=== PATIENT | male | born 1985 ===

== ENCOUNTER → 2022-04-01 08:01 | Outpatient (BNVA) | payer OTHER, SELFPAY | PROVIDERS: PCP Hospitalist; Referring Provider Hospitalist; Visit Provider Physician Assistant | DX: Z13.89 Encounter for screening for other disorder (principal) ==

== ENCOUNTER → 2022-04-02 10:47 | Outpatient (BNVA) | payer OTHER, SELFPAY | PROVIDERS: PCP Hospitalist; Visit Provider Physician Assistant Surgical | DX: E66.01 Morbid (severe) obesity due to excess calories (principal); Z68.42 Body mass index [BMI] 45.0-49.9, adult | CPT/HCPCS: 99202 ==

== ENCOUNTER 2022-04-16 09:49 | Outpatient (REF) | payer OTHER, SELFPAY ==
--- NOTE | ~2022-04-16 | XR_ITS ---
EXAMINATION: XR CHEST CLINICAL INFORMATION: Morbid obesity. COMPARISON: None TECHNIQUE: 2 views of the chest were obtained. FINDINGS: No significant abnormality is noted involving the heart, lungs, mediastinum, bony thorax or soft tissues. XR/XR chest 2V IMPRESSION: Unremarkable examination.
--- NOTE | 2022-04-16 09:56 | ECG_ITS ---
Test Reason : OBESITY Blood Pressure : / mmHG Vent. Rate : 074 BPM Atrial Rate : 074 BPM P-R Int : 198 ms QRS Dur : 114 ms QT Int : 380 ms P-R-T Axes : 005 025 -05 degrees QTc Int : 421 ms Normal sinus rhythm Normal ECG No previous ECGs available Referred By: Og Andrews Electronically Signed By:Martin Pabon
[2022-04-16 10:12] LABS: MANUAL DIFF FLAG NO
[2022-04-16 10:50] LABS: Basophils Absolute Auto 0.1 X10*3/uL (0.0-0.2); Basophils Percent Auto 0.9 % (0-2); Eosinophils Absolute Auto 0.1 X10*3/uL (0.0-0.4); Eosinophils Percent Auto 2.6 % (0-4); Hemoglobin 13.7 g/dl (14.0-18.0); Imm Gran Abs Auto 0.01 X10*3/uL (0.00-0.03); Imm Gran Pct Auto 0.2 % (0.0-0.4); Lymphocytes Absolute Auto 2.3 X10*3/uL (1.2-4.9); Lymphocytes Percent Auto 43.3 % (20-40); Mean Corpuscular HGB Conc 32.6 g/dl (31.0-36.0); Mean Corpuscular Hemoglobin 30.6 pg (27.0-33.0); Mean Platelet Volume 9.7 fL (9.4-12.4); Monocytes Absolute Auto 0.4 X10*3/uL (0.1-1.2); Monocytes Percent Auto 7.9 % (2-11); Neutrophils Absolute Auto 2.4 x10*3/uL (2.0-8.3); Neutrophils Percent Auto 45.1 % (45-73); Platelet Count 384 X10*3/uL (160-400); Red Blood Count 4.47 X10*6/uL (4.60-5.80); Red Cell Distribution Width 11.5 % (11.0-16.0); White Blood Count 5.3 X10*3/uL (4.8-10.8)
[2022-04-16 10:56] LABS: Estimated Average Glucose 88 mg/dL; Hemoglobin A1c % 4.7 %
[2022-04-16 11:25] LABS: Alanine Aminotransferase 23 U/L (0-40); Albumin Level 4.5 g/dL (3.5-5.0); Alkaline Phosphatase 57 U/L (39-117); Anion Gap 14 (12-20); Aspartate Amino Transferase 24 U/L (5-37); Bilirubin Total 0.7 mg/dL (0.0-1.0); Blood Urea Nitrogen 19 mg/dL (9-16); C Reactive Protein 0.73 mg/dL (< or = 0.50); Calcium 9.7 mg/dL (8.4-10.2); Carbon Dioxide 25 mmol/L (22-29); Chloride 106 mmol/L (96-108); Cholesterol 145 mg/dL; Estimated Glomerular Filt Rate > 60; Glucose Random 104 mg/dL (60-115); HDL Cholesterol 38 mg/dL; Iron 99 mcg/dL (45-160); LDL Cholesterol Calculated 95 mg/dl; Percent Iron Saturation 29 % (15-50); Potassium 4.9 mmol/L (3.3-5.1); Sodium 140 mmol/L (135-145); Total Iron Binding Capacity 338 mcg/dL (228-428); Total Protein 7.4 g/dL (6.5-8.0); Triglycerides 64 mg/dL; Unsaturated Iron Binding 239 ug/dL
[2022-04-16 12:00] LABS: Ferritin 319 ng/mL (20-250); Folate 15.2 ng/mL (> or = 4.0); Insulin 20 uU/mL (2-29); TSH reflex Free T4 0.81 uIU/mL (0.32-4.0); Vitamin B12 530 pg/mL (200-900); Vitamin D 25-OH Total 26.3 ng/mL (>30)
[2022-04-17 14:59] LABS: Calcium (PTHI) 9.7 mg/dL (8.6-10.3); PTHI 54 pg/mL (16-77)
[2022-04-22 00:13] LABS: Zinc 85 mcg/dL (60-130)
[2022-04-23 03:13] LABS: Vitamin A 38 mcg/dL (38-98)
[2022-04-24 14:33] LABS: Vitamin B1 <6 nmol/L (8-30)
== END 2022-04-16 09:50 | disposition home or self-care (01) ==
LOC: HO.LAB 09:49
PROVIDERS: PCP Hospitalist; Visit Provider Physician Assistant Surgical
DX: E66.01 Morbid (severe) obesity due to excess calories (principal)
CPT/HCPCS: 36415; 71046; 80053; 80061; 82306; 82607; 82728; 82746; 83036; 83525; 83540; 83970; 84425; 84443; 84590; 84630; 85025; 86140; 93005

== ENCOUNTER → 2022-04-24 09:37 | Outpatient (BNVA) | payer OTHER, SELFPAY | PROVIDERS: PCP Hospitalist; Referring Provider Physician Assistant Surgical; Visit Provider Dietitian, Registered | DX: E66.01 Morbid (severe) obesity due to excess calories (principal); Z68.41 Body mass index [BMI] 40.0-44.9, adult | CPT/HCPCS: 97802 ==

== ENCOUNTER → 2022-04-28 09:00 | Outpatient (BNVA) | payer OTHER, SELFPAY | PROVIDERS: PCP Hospitalist; Visit Provider Physician Assistant Surgical | DX: E66.01 Morbid (severe) obesity due to excess calories (principal); Z68.41 Body mass index [BMI] 40.0-44.9, adult | CPT/HCPCS: 99211; 99212 ==

== ENCOUNTER 2022-04-28 15:58 | Outpatient (REF) | payer OTHER, SELFPAY ==
[2022-04-29 15:32] LABS: H Pylori Breath Test Positive (Negative)
== END 2022-04-28 15:59 | disposition home or self-care (01) ==
LOC: HO.LNP 15:58
PROVIDERS: Visit Provider Physician Assistant Surgical
DX: E66.01 Morbid (severe) obesity due to excess calories (principal)
CPT/HCPCS: 83013

== ENCOUNTER → 2022-05-19 10:02 | Outpatient (BNVA) | payer OTHER, SELFPAY | PROVIDERS: PCP Hospitalist; Visit Provider Surgery | DX: E66.01 Morbid (severe) obesity due to excess calories (principal); R06.83 Snoring; R79.89 Other specified abnormal findings of blood chemistry; A04.8 Other specified bacterial intestinal infections; Z68.41 Body mass index [BMI] 40.0-44.9, adult | CPT/HCPCS: 99212 ==

== ENCOUNTER 2022-05-27 08:44 | Outpatient (REF) | payer OTHER, SELFPAY ==
--- NOTE | ~2022-05-27 | US_ITS ---
EXAMINATION: US COMPLETE ABDOMEN WITH LIVER ELASTOGRAPHY CLINICAL INFORMATION: Morbid obesity. COMPARISON: None available. TECHNIQUE: Real-time imaging of the abdominal viscera. Noninvasive ultrasound liver fibrosis assessment is performed using Ron ElastPQ point quantification shear wave elastography (2D-SWE) with a C5-2 MHz transducer. Multiple elastography samples are obtained. FINDINGS: PANCREAS: Limited. The visualized pancreatic head and body are normal in appearance. The remainder of the pancreas is obscured from visualization by the overlying bowel gas. ABDOMINAL AORTA: The proximal, middle, and distal aortic segments are normal in caliber. INFERIOR VENA CAVA: Visualized portions are normal. LIVER: The liver demonstrates normal size, contour and generally increased echogenicity. No focal lesion or intrahepatic biliary duct dilatation. The right lobe measures 18 point cm in length. The left lobe measures 13.3 cm in length. Portal flow is towards the liver (hepatopetal). Shear wave liver elastography median stiffness is 1.35 m/s (reference: normal median stiffness is 1.3 m/s or less). IQR/median stiffness to assess sampling precision is 0.22 (reference: good quality data set is IQR/median stiffness of 0.15 or less). GALLBLADDER: Normal. The gallbladder is physiologically distended without evidence of stones, sludge, polyps, wall thickening or pericholecystic fluid. COMMON BILE DUCT: Normal in caliber measuring 0.4 cm in diameter. RIGHT KIDNEY: Normal. No hydronephrosis. No renal calculi or focal parenchymal lesions. The kidney measures 12.5 cm in maximum dimension. LEFT KIDNEY: Normal. No hydronephrosis. No renal calculi or focal parenchymal lesions. The kidney measures 11.8 cm in maximum dimension. SPLEEN: Normal. The spleen measures 10.9 cm in maximum dimension. FREE FLUID: None. US/US abdomen comp w elastography IMPRESSION: 1. There is generalized increase in hepatic echotexture, consistent with fatty infiltration or hepatocellular disease. Please correlate clinically. No focal hepatic mass or intrahepatic biliary dilatation is seen. 2. Liver elastography: Although measurements appear to rule out compensated advanced chronic liver disease, there is statistical variability of the sampling which decreases accuracy. 3. Technically limited ultrasound examination of the pancreatic tail. REFERENCE: Society of Radiologists in Ultrasound Liver Stiffness Thresholds (2020): LIVER STIFFNESS THRESHOLDS: *Liver Stiffness equal or less than 1.3 m/s: High probability of being normal. *Liver Stiffness less than 1.7 m/s: In the absence of other known clinical signs, rules out compensated advanced chronic liver disease. *Liver Stiffness 1.7-2.1 m/s: Suggestive of compensated advanced chronic liver disease but need further test for confirmation. *Liver Stiffness over 2.1 m/s: Rules in compensated advanced chronic liver disease. *Liver Stiffness over 2.4 m/s: Suggestive of clinically significant portal hypertension. QUALITY OF DATA SET: *IQR/Median value equal or less than 0.15 implies a quality data set. *IQR/Median value over 0.15 implies a poor quality data set. SIGNIFICANT CHANGE FROM PRIOR EXAM: Significant change if liver stiffness measurement is 10% or greater from prior exam. OTHER CONSIDERATIONS: The stage of liver fibrosis may be overestimated in the setting of acute hepatitis, liver inflammation, elevated liver function tests, hepatic vascular congestion, obstructive cholestasis, non-fasting state, and infiltrative diseases such as amyloidosis and lymphoma. In some patients with NAFLD, the liver stiffness thresholds for compensated advanced chronic liver disease may be lower. In causes other than viral hepatitis and NAFLD, liver stiffness thresholds are not well established.
== END 2022-05-27 08:45 | disposition home or self-care (01) ==
LOC: HO.US 08:44
PROVIDERS: PCP Hospitalist; Visit Provider Physician Assistant Surgical
DX: Z01.818 Encounter for other preprocedural examination (principal); E66.01 Morbid (severe) obesity due to excess calories; K21.9 Gastro-esophageal reflux disease without esophagitis
CPT/HCPCS: 76705; 76981

== ENCOUNTER → 2022-06-02 09:50 | Outpatient (BNVA) | payer OTHER, SELFPAY | PROVIDERS: PCP Hospitalist; Visit Provider Physician Assistant Surgical | DX: Z11.0 Encounter for screening for intestinal infectious diseases (principal); E66.01 Morbid (severe) obesity due to excess calories; Z68.41 Body mass index [BMI] 40.0-44.9, adult | CPT/HCPCS: 99211; 99212 ==

== ENCOUNTER 2022-06-04 15:44 | Outpatient (REF) | payer OTHER, SELFPAY ==
[2022-06-05 11:58] LABS: H Pylori Breath Test Positive (Negative)
== END 2022-06-04 15:45 | disposition home or self-care (01) ==
LOC: HO.LNP 15:44
PROVIDERS: Visit Provider Physician Assistant Surgical
DX: Z01.818 Encounter for other preprocedural examination (principal)
CPT/HCPCS: 83013

== ENCOUNTER → 2022-06-06 09:47 | Outpatient (BNVA) | payer OTHER, SELFPAY | PROVIDERS: PCP Hospitalist; Visit Provider Counselor Mental Health ==

== ENCOUNTER 2022-07-23 09:01 | Outpatient (REF) | payer OTHER, SELFPAY ==
--- NOTE | ~2022-07-23 | FL_ITS ---
EXAMINATION: XR FLUOROSCOPY UPPER GI WITH AIR CLINICAL INFORMATION: Obesity COMPARISON: None available. TECHNIQUE: Upper GI was performed using thin and thick barium and effervescent granules FINDINGS: Esophageal motility is normal. No hernia. Gastroesophageal reflux. The stomach and duodenum are normal-appearing. No fold thickening, mass, ulcer or stricture. FLUOROSCOPY TIME: 0.5 minutes DOSE AREA PRODUCT: 6.7 maldonado per centimeter squared. Total dose 38 mgy. 16 saved fluoroscopic images. FL/FL upper GI w air IMPRESSION: Gastroesophageal reflux otherwise unremarkable exam
== END 2022-07-23 09:02 | disposition home or self-care (01) ==
LOC: HO.XRAY 09:01
PROVIDERS: PCP Hospitalist; Visit Provider Physician Assistant Surgical
DX: E66.01 Morbid (severe) obesity due to excess calories (principal)
CPT/HCPCS: 74246

== ENCOUNTER → 2022-07-25 09:12 | Outpatient (BNVA) | payer OTHER, SELFPAY | PROVIDERS: PCP Hospitalist; Referring Provider Hospitalist; Visit Provider Surgery ==

== ENCOUNTER → 2022-07-29 12:04 | Outpatient (BNVA) | payer SELFPAY | PROVIDERS: PCP Hospitalist; Visit Provider Physician Assistant Surgical | DX: E66.01 Morbid (severe) obesity due to excess calories (principal); Z68.41 Body mass index [BMI] 40.0-44.9, adult | CPT/HCPCS: 99212 ==

== ENCOUNTER 2023-09-14 09:57 | Outpatient (AMB) | payer OTHER, SELFPAY ==
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
[2023-09-14 10:12] VITALS: BP 134/70; PULSE 83; RESP 16; TEMP 36.4; O2SAT 94; BMI 44.0
== END 2023-09-14 10:37 | disposition home or self-care (01) ==
PROVIDERS: Visit Provider Nurse Practitioner Family
DX: Z00.00 Encounter for general adult medical examination without abnormal findings (principal); E66.01 Morbid (severe) obesity due to excess calories; Z68.41 Body mass index [BMI] 40.0-44.9, adult; M79.602 Pain in left arm; R79.89 Other specified abnormal findings of blood chemistry; Z72.89 Other problems related to lifestyle
CPT/HCPCS: 99214; 99395

== ENCOUNTER 2024-04-06 09:15 | Outpatient (REF) | payer OTHER, SELFPAY ==
[2024-04-06 09:35] LABS: MANUAL DIFF FLAG NO
--- OUTSIDE RECORDS SUMMARY | 2024-04-06 09:37 | XMS_ITS | Encounter Summary ---
Author Organization [facility] Address [address] [place] [address] Care Team Providers Care Manager Test Name Role Phone Unavailable Primary Care Provider Unavailabl e Reason for Referral * Medications - Denied Specialty Diagnoses / Procedures Referred By Elias kohli Referred To Contact Diagnoses Class 3 severe obesity due to excess calories without serious comorbidity with body mass index (BMI) of 40.0 to 44.9 in adult (CMS/[facility]) Shi Vasquez MD [address] [address] Referral ID Status Reason Start Date Expiration Date Visits Re quested Visits Authorized [id number] Denied 1 1 Reason for Visit * Reason Comments Consult New patient Encounter Details Date Type Department Care Team (Late st Contact Info) Description 03/29/2024 3:30 PM EST Office Visit Bariatric Surgery - [place] [address] [phone] Shi Vasuqez MD [address] [address] Class 3 severe obesity due to excess calories without serious comorbidity with body mass index (BMI) of 40.0 to 44.9 in adult (CMS/[facility]) (Primary Dx) Social History Tobacco Use Types Packs/Day Years Used Date Smoking Tobacco: Never Assessed Sex and Gender Information Value Date Recorded Sex Assigned at Male 03/30/2024 4:43 PM EST Gender Identity Male 03/30/2024 4:43 PM EST Sexual Orientation Straight 03/30/2024 4: 43 PM EST Job Start Date Occupation Industry Not on file Not on file Not on file documented as of this encounter Last Filed Vital Signs Vital Sign Reading Time Taken Comments Blood Pressure 133/76 03/29/2024 3:27 PM EST Pulse 88 03/29/2024 3:27 PM EST Temperature 36.6 ??C (97.8 ??F) 03/29/2024 3:27 PM ES T Respiratory Rate - - Oxygen Saturation - - Inhaled Oxygen Concentration - - Weight 154 kg (339 lb) 03/29/2024 3:27 PM EST Height 188 cm (6' 2 ) 03/29/2024 3:27 PM EST Body Mass Index 43.53 03/29/2024 3:27 PM EST documented in this encounter Ordered Prescriptions Prescription Sig Dispensed Refills Start Date End Da te tirzepatide, weight loss, (Zepbound) 2.5 mg/0.5 mL injectionIndications:Class 3 severe obesity due to excess calories without serious comorbidity with body mass index (BMI) of 40.0 to 44.9 in adult (CMS/[facility]) Inject 0.5 mL (2.5 mg total) under the skin every 7 (seven) days for 4 doses. 2 mL 03/29/2024 04/20/2024 documented in this encounter Progress Notes * Shi Vasquez MD - 03/29/2024 3:30 PM EST Referring physician: PCP Ms. Pepper is a 38 y.o. year old male who presents for surgical consultation regarding obesity. HPI: Mr. Pepper [address] came to [facility]. Was ready to have bariatric surgery and decided not to have. BMI is 43.53. Onset: as above. Factors: less active than. in [place] Previous attempts: has lost 25 lbs avoiding junk, not eating at night. Lost down to 307 lbs when he was in the bariatric program. Has been able to lose three times, mostly exercising. Eating habits: large portion, fast food, and take out when he gained the weight. Exercise: has tried to go gym. Comorbidities: none yet. BMI: 45.53. ROS: GENERAL: No malaise, significant unintentional weight loss, fever, chills or night sweats. HEENT: No changes in hearing or vision, no nose bleeds or other nasal problems. NECK: No lumps, goiter, pain or significant neck swelling RESPIRATORY: No cough, wheezing or shortness of breath CARDIOVASCULAR: No chest pain, leg swelling or palpitations. GI: No abdominal discomfort, nausea, vomiting, or change in bowel habits. : No dysuria, frequency or incontinence. SKIN: No lesions, rash or itching. HEMATOLOGY: No prolonged bleeding, easy bruisability. LYMPHOLOGY No swollen nodes. MUSCULOSKELETAL: No abnormalities. NEURO: No abnormalities. All other systems reviewed which are negative. PAST MEDICAL HISTORY: There is no problem list on file for this patient. PAST SURGICAL HISTORY: No past surgical history on file. SOCIAL HISTORY: Social History Tobacco Use Smoking status: Not on file Smokeless tobacco: Not on file Substance Use Topics Alcohol use: Not on file FAMILY HISTORY: No family history on file. No family status information on file. MEDICATIONS: There are no discontinued medications. ACTIVE MEDICATIONS: No outpatient medications have been marked as taking for the 03/29/24 encounter (Office Visit) with Shi Vasquez MD. ALLERGIES: No Known Allergies PHYSICAL EXAM: Visit Vitals BP 133/76 Pulse 88 Temp 36.6 ??C (97.8 ??F) (Oral) Ht 1.88 m (74 ) Wt 154 kg (339 lb) BMI 43.53 kg/m?? BSA 2.72 m?? APPEARANCE: Alert and oriented and in no acute distress EYES: Conjunctiva normal and sclera normal and anicteric. NECK: Neck supple with no adenopathy. HEART: RRR with normal S 1 and S 2, no murmurs, no gallops. LUNG: Clear to auscultation LYMPH NODES: No gross cervical or clavicular lymphadenopathy. ABDOMEN: Bowel sounds normoactive, soft, non-tender, non-distended, EXTREMITIES: Extremities warm and well perfused without clubbing, cyanosis, or edema. SKIN: Skin color and texture normal. No rashes or lesions. NEUROLOGIC: Alert and oriented ??3. No motor or sensory deficits in the extremities. LABS/IMAGING: @AORD@ ASSESSMENT: 1. Class 3 severe obesity due to excess calories without serious comorbidity with body mass index (BMI) of 40.0 to 44.9 in adult (CMS/[facility]) Hemoglobin A1c Lipid panel with reflex to direct LDL Hepatic function panel Thyroid stimulating hormone PLAN: 1. I discussed with the patient the different procedures available including the sleeve gastrectomy, the gastric bypass and the single anastomosis duodenal ileal bypass with sleeve. Indications, benefits, risks and complications were discussed. I also discussed with the patient the different medical options. I explained the mechanism of action, the potential adverse effects and the expected results. These included phentermine, topiramate, naltrexone, bupropion and the different GLP-1 medications. He is afraid of surgery. 2. The patient is a good candidate for medical weight management given a BMI of 43.53 . Risk of developing co-morbidities. They remain dedicated to improving their health and quality of life as well as remaining physicallyactive. I have had a long discussion with the patient regarding medical weight management which includes both oral medications including stimulants/appetite suppressants versus injectable GLP-1 medications. We have decided to proceed with injectable GIP/GLP-1 medication - tirzepatide The risks and benefits of this medication were discussed in length with the patient. Benefits include weight loss and overall healthier lifestyle with he hopes of improving any co morbid conditions. Risks include nausea/vomiting, diarrhea, injection site reaction, gastroparesis. We have also discussed the potential for thyroid cancer and multiple endocrine neoplasia; patient denies family history of either condition. We discussed that this medication should be used long-term and that obesity will be treated as a chronic condition. If and when patient stops this medication weight may come back. The patient will follow-up in the office every 4 weeks for a weight check and potential dose titration The patient will also continue to follow-up with the dietitian to ensure that they are working on proper eating habits in addition to using the medication. 3. Dietitian. 4. The patient will let us know in few weeks if the medication is being effective or if the patientis having side effects. The dose will be adjusted depending upon the response and the presence of side effects. Follow-up in 4 months. documented in this encounter Plan of Treatment Upcoming Encounters Date Type Department Care Team ([facility] st Contact Info) Description 07/28/2024 10:15 AM EDT Office Visit Bariatric Surgery - [place] [address] [phone] Shi Vasquez MD [address] [address] documented as of this encounter Results * Thyroid stimulating hormone (03/30/2024 10:42 AM EST) TSH 1.91 0.40 - 4.00 mcIU/mL LAB CHEMISTRY METHOD 03/30/2024 3:33 PM EST [facility] Blood Venous blood specimen / Unknown Venipuncture / Unknown 03/30/2024 10:42 AM EST 03/30/2024 10:42 AM EST Shi Vasquez MD LAB BLOOD ORDERABLES [facility] [address] [place] [address], * Hepatic function panel (03/30/2024 10:42 AM EST) Pathologist [facility] Total Protein 7.7 6.0 - 8.0 g/dL LAB CHEMISTRY METHOD 03/30/2024 3:[address] [facility] Albumin 4.0 3.2 - 5.0 g/dL LAB CHEMISTRY METHOD 03/30/2024 3:[address] [facility] Total Bilirubin 0.5 0.0 - 1.4 mg/dL LAB CHEMISTRY METHOD 03/30/2024 3:[address] [facility] Bilirubin, Direct <0.1 0.0 - 0.3 mg/dL LAB CHEMISTRY METHOD 03/30/2024 3:[address] [facility] Bilirubin, Indirect LAB CHEMISTRY METHOD 03/30/2024 3:[address] [facility] Comment:Unable to calculate Indirect Bilirubin. ALT (SGPT) 30 10 - 60 unit/L LAB CHEMISTRY METHOD 03/30/2024 3:28 PM EST [facility] AST (SGOT) 18 10 - 42 unit/L LAB CHEMISTRY METHOD 03/30/2024 3:[address] [facility] Alkaline Phosphatase 59 42 - 121 unit/L LAB CHEMISTRY METHOD 03/30/2024 3:[address] [facility] Blood Venous blood specimen / Unknown Venipuncture / Unknown 03/30/2024 10:42 AM EST 03/30/2024 10:42 AM EST Shi Vasquez MD LAB BLOOD ORDERABLES [facility] [address] [place] [address], * Lipid panel with reflex to direct LDL (03/30/2024 10:42 AM EST) Cholesterol 167 0 - 200 mg/dL LAB CHEMISTRY METHOD 03/30/2024 3:[address] [facility] Triglycerides 114 0 - 150 mg/dL LAB CHEMISTRY METHOD 03/30/2024 3:[address] [facility] HDL 46 >=40 mg/dL LAB CHEMISTRY METHOD 03/30/2024 3:[address] [facility] LDL Calculated 98 0 - 100 mg/dL LAB CHEMISTRY METHOD 03/30/2024 3:[address] [facility] VLDL Cholesterol Prabhakar 22.8 mg/dL LAB CHEMISTRY METHOD 03/30/2024 3:[address] [facility] Non HDL Chol. (LDL+VLDL) 121 <145 mg/dL LAB CHEMISTRY METHOD 03/30/2024 3:[address] [facility] Chol/HDL Ratio 3.6 0.0 - 4.4 LAB CHEMISTRY METHOD 03/30/2024 3:[address] [facility] Blood Venous blood specimen / Unknown Venipuncture / Unknown 03/30/2024 10:42 AM EST 03/30/2024 10:42 AM EST Shi Vasquez MD LAB BLOOD ORDERABLES [facility] [address] [place] [address], [place] [phone] * Hemoglobin A1c (03/30/2024 10:42 AM EST) Hemoglobin A1C 4.9 <6.5 % LAB CHEMISTRY METHOD 03/30/2024 8:27 PM EST [facility] Mean Bld Glu Estim. 94 mg/dL LAB CHEMISTRY METHOD 03/30/2024 8:27 PM EST [facility] Blood Venous blood specimen / Unknown Venipuncture / Unknown 03/30/2024 10:42 AM EST 03/30/2024 10:42 AM EST Shi Vasquez MD LAB BLOOD ORDERABLES [facility] [address] [place] [address], [place] [phone] documented in this encounter Visit Diagnoses Diagnosis Class 3 severe obesity due to excess calories without serious comorbidity with body mass index (BMI) of 40.0 to 44.9 in adult (CMS/HCC)- Primary documented in this encounter
--- OUTSIDE RECORDS SUMMARY | 2024-04-06 09:38 | XMS_ITS | Clinical Summary ---
Author Organization [facility] Address [address] [place] [address] Care Team Providers Care Skilled Helper Name Role Phone Unavailable Primary Care Provider Unavailabl e Allergies No known active allergies Medications Medication Sig Dispensed Refills Start Date End Date Status tirzepatide, weight loss, (Zepbound) 2.5 mg/0.5 mL injectionIndications:C lass 3 severe obesity due to excess calories without serious comorbidity with body mass index (BMI) of 40.0 to 44.9 in adult (CMS/HCC) Inject 0.5 mL (2.5 mg total) under the skin every 7 (seven) days for 4 doses. 2 mL 03/29/2024 04/20/2024 Active Encounters Date Type Department Care Team Description 04/05/2024 11:30 AM EST Telemedicine Bariatric Surgery [address] [phone] Class 3 severe obesity without serious comorbidity with body mass index (BMI) of 45.0 to 49.9 in adult, unspecified obesity type (CMS/HCC) (Primary Dx) 03/30/2024 Telephone Bariatric Surgery [address] [phone] Shi Vasquez MD 03/29/2024 3:30 PM EST Office Visit Bariatric Surgery [address] [phone] Shi Vasquez MD Class 3 severe obesity due to excess calories without serious comorbidity with body mass index (BMI) of 40.0 to 44.9 in adult (CMS/HCC) (Primary Dx) from Last 3 Months Social History Tobacco Use Types Packs/Day Years Used Date Smoking Tobacco: Never Assessed Sex and Gender Information Value Date Recorded Sex Assigned at Male 03/30/2024 4:43 PM EST Gender Identity Male 03/30/2024 4:43 PM EST Sexual Orientation Straight 03/30/2024 4: 43 PM EST Job Start Date Occupation Industry Not on file Not on file Not on file Last Filed Vital Signs Vital Sign Reading Time Taken Comments Blood Pressure 133/76 03/29/2024 3:27 PM EST Pulse 88 03/29/2024 3:27 PM EST Temperature 36.6 ??C (97.8 ??F) 03/29/2024 3:27 PM ES T Respiratory Rate - - Oxygen Saturation - - Inhaled Oxygen Concentration - - Weight 154 kg (339 lb) 04/05/2024 11:00 AM EST Height 188 cm (6' 2 ) 03/29/2024 3:27 PM EST Body Mass Index 43.53 03/29/2024 3:27 PM EST Plan of Treatment Upcoming Encounters Date Type Department Care Team (Late st Contact Info) Description 07/28/2024 10:15 AM EDT Office Visit Bariatric Surgery - [place] 175 [facility] [address] [place] [phone] Shi Vasquez MD 175 [facility] [address] [place] [address] Health Maintenance Due Date Last Done Comments DTaP,Tdap,and Td Vaccines (1 - Tdap) 2005 Hepatitis B Vaccines (1 of 3 - 19+ 3-dose series) 2005 COVID-19 Vaccine (2023-2 5 season) 2023 07/04/2020, 06/13/2020 Influenza Vaccine (#1) 2023 Depression Screening 01/24/2024 HIV Screening 01/24/2024 Hepatitis C Screening 01/24/2024 Social Influencers of Health Screening 01/24/2024 Cholesterol Screening (Lipid Panel) 03/30/2029 03/30/2024 HIB Vaccines Aged Out No longer eligi ble based on patient's age to complete this topic HPV Vaccines Aged Out No longer eligi ble based on patient's age to complete this topic Hepatitis A Vaccines Aged Out No long er eligible based on patient's age to complete this topic IPV Vaccines Aged Out No longer eligi ble based on patient's age to complete this topic MMR Vaccines Aged Out No longer eligi ble based on patient's age to complete this topic Meningococcal ACWY Vaccine Aged Out N o longer eligible based on patient's age to complete this topic Pneumococcal Vaccine: Pediatrics (0 to 5 Years) and At-Risk Patients (6 to 64 Years) Aged Out No longer eligible b ased on patient's age to complete this topic RSV Immunization Patients Under 20 months Aged Out No longer eligible b ased on patient's age to complete this topic Varicella Vaccines Aged Out No longer eligible based on patient's age to complete this topic Procedures Procedure Name Priority Date/Time Associated Diagnosis Comments THYROID STIMULATING HORMONE Routine 03/30/2024 10:42 AM EST Class 3 severe obesity due to excess calories without serious comorbidity with body mass index (BMI) of 40.0 to 44.9 in adult ([facility]) HEPATIC FUNCTION PANEL Routine 03/30/2024 10:42 AM EST Class 3 severe obesity due to excess calories without serious comorbidity with body mass index (BMI) of 40.0 to 44.9 in adult ([facility]) LIPID PANEL WITH REFLEX TO DIRECT LDL Routine 03/30/2024 10:42 AM EST Class 3 severe obesity due to excess calories without serious comorbidity with body mass index (BMI) of 40.0 to 44.9 in adult ([facility]) HEMOGLOBIN A1C Routine 03/30/2024 10:42 AM EST Class 3 severe obesity due to excess calories without serious comorbidity with body mass index (BMI) of 40.0 to 44.9 in adult ([facility]) from Last 3 Months Results * Lipid panel with reflex to direct LDL (03/30/2024 10:42 AM EST) Cholesterol 167 0 - 200 mg/dL LAB CHEMISTRY METHOD 03/30/2024 3:28 PM [facility] Triglycerides 114 0 - 150 mg/dL LAB CHEMISTRY METHOD 03/30/2024 3:28 PM [facility] HDL 46 >=40 mg/dL LAB CHEMISTRY METHOD 03/30/2024 3:28 PM [facility] LDL Calculated 98 0 - 100 mg/dL LAB CHEMISTRY METHOD 03/30/2024 3:28 PM [facility] VLDL Cholesterol Prabhakar 22.8 mg/dL LAB CHEMISTRY METHOD 03/30/2024 3:28 PM [facility] Non HDL Chol. (LDL+VLDL) 121 <145 mg/dL LAB CHEMISTRY METHOD 03/30/2024 3:28 PM [facility] Chol/HDL Ratio 3.6 0.0 - 4.4 LAB CHEMISTRY METHOD 03/30/2024 3:28 PM [facility] Blood Venous blood specimen / Unknown Venipuncture / Unknown 03/30/2024 10:42 AM EST 03/30/2024 10:42 AM EST Shi Vasquez MD LAB BLOOD ORDERABLES [facility] [address] [place] [address], * Thyroid stimulating hormone (03/30/2024 10:42 AM EST) TSH 1.91 0.40 - 4.00 mcIU/mL LAB CHEMISTRY METHOD 03/30/2024 3:33 PM [facility] Blood Venous blood specimen / Unknown Venipuncture / Unknown 03/30/2024 10:42 AM EST 03/30/2024 10:42 AM EST Shi Vasquez MD LAB BLOOD ORDERABLES [facility] [address] [place] [address], * Hemoglobin A1c (03/30/2024 10:42 AM EST) [facility] Hemoglobin A1C 4.9 <6.5 % LAB CHEMISTRY METHOD 03/30/2024 8:27 PM [facility] Mean Bld Glu Estim. 94 mg/dL LAB CHEMISTRY METHOD 03/30/2024 8:27 PM [facility] Blood Venous blood specimen / Unknown Venipuncture / Unknown 03/30/2024 10:42 AM EST 03/30/2024 10:42 AM EST Shi Vasquez MD LAB BLOOD ORDERABLES [facility] [address] [place] [address], * Hepatic function panel (03/30/2024 10:42 AM EST) [facility] Total Protein 7.7 6.0 - 8.0 g/dL LAB CHEMISTRY METHOD 03/30/2024 3:28 PM [facility] Albumin 4.0 3.2 - 5.0 g/dL LAB CHEMISTRY METHOD 03/30/2024 3:28 PM [facility] Total Bilirubin 0.5 0.0 - 1.4 mg/dL LAB CHEMISTRY METHOD 03/30/2024 3:28 PM [facility] Bilirubin, Direct <0.1 0.0 - 0.3 mg/dL LAB CHEMISTRY METHOD 03/30/2024 3:28 PM [facility] Bilirubin, Indirect LAB CHEMISTRY METHOD 03/30/2024 3:28 PM [facility] Comment:Unable to calculate Indirect Bilirubin. ALT (SGPT) 30 10 - 60 unit/L LAB CHEMISTRY METHOD 03/30/2024 3:28 PM [facility] AST (SGOT) 18 10 - 42 unit/L LAB CHEMISTRY METHOD 03/30/2024 3:[address] [facility] Alkaline Phosphatase 59 42 - 121 unit/L LAB CHEMISTRY METHOD 03/30/2024 3:[address] [facility] Blood Venous blood specimen / Unknown Venipuncture / Unknown 03/30/2024 10:42 AM EST 03/30/2024 10:42 AM EST Shi Vasquez MD LAB BLOOD ORDERABLES [facility] [address] [place] [address], from Last 3 Months
--- OUTSIDE RECORDS SUMMARY | 2024-04-06 09:38 | XMS_ITS | Encounter Summary ---
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 Name Role Phone Unavailable Primary Care Provider Unavailabl e Encounter Details Date Type Department Care Team (Late st Contact Info) Description 03/30/2024 Telephone Bariatric Surgery - [place] [address] [place] [phone] Shi Vasquez MD [address] [place] [address] Social History Tobacco Use Types Packs/Day Years Used Date Smoking Tobacco: Never Assessed Sex and Gender Information Value Date Recorded Sex Assigned at Male 03/30/2024 4:43 PM EST Gender Identity Male 03/30/2024 4:43 PM EST Sexual Orientation Straight 03/30/2024 4: 43 PM EST Job Start Date Occupation Industry Not on file Not on file Not on file documented as of this encounter Progress Notes * Michelle Andrade MA - 03/30/2024 8:40 AM EST We heard back in regards to the prior authorization we submitted on your behalf for Carmen. Your insurance will not approve an injectable medications until you have been in our program for at least three months. You started the program in 03/29/24, therefore we can resubmit to your insurance in 06/27/24. You have an appointment with your dietitian Nirali Kearney RD on 04/05/24 at 2pm. You have a follow up with Shi Vasquez MD, FACS on 07/28/24 at 10:15 am. After your appointment with Shi Vasquez MD, FACS - we can resubmit for Zepbound for you. documented in this encounter Plan of Treatment Upcoming Encounters Date Type Department Care Team (Late st Contact Info) Description 07/28/2024 10:15 AM EDT Office Visit Bariatric Surgery - [place] [address] [facility] [address] [place] [phone] Shi Vasquez MD [address] [facility] [address] [facility] [address] [place] [address] documented as of this encounter Visit Diagnoses Not on filedocumented in this encounter
--- OUTSIDE RECORDS SUMMARY | 2024-04-06 09:38 | XMS_ITS | Encounter Summary ---
Author Organization [facility] Address [address] [place] [address] Care Team Providers Care Manager Programs Name Role Phone Unavailable Primary Care Provider Unavailabl e Encounter Details Date Type Department Care Team (Late st Contact Info) Description 04/05/2024 11:30 AM EST Telemedicine Bariatric Surgery - [address] [phone] Nirali Kearney, EDU [address] [phone] Class 3 severe obesity without serious comorbidity with body mass index (BMI) of 45.0 to 49.9 in adult, unspecified obesity type (CMS/HCC) (Primary Dx) Social History Tobacco Use Types [...] Sign Reading Time Taken Comments Blood Pressure - - Pulse - - Temperature - - Respiratory Rate - - Oxygen Saturation - - Inhaled Oxygen Concentration - - Weight 154 kg (339 lb) 04/05/2024 11:00 AM EST Height - - Body Mass Index 43.53 03/29/2024 3:27 PM EST documented in this encounter Progress Notes * Nirali Kearney RD - 04/05/2024 11:30 AM EST Images from the original note were not included. Patient-created Goals: 64 oz of water daily - preferably sipping throughout the day (no carbonation or sugar) 100- 120 grams of protein per day from lean protein sources such as chicken, turkey, fish, beans, etc. A minimum of 3 meals per day. Preferably 3 small meals and 2 snacks spaced out over the course of the day (every 3-5 hours) Each meal and snack should include protein Protein shakes can replace a meal or snack, look for 20-30 grams of protein, less than 5 grams of added sugar (orgain, premiere) .Nirali Kearney RDN Bariatric Dietitian [facility] [email or web address] W [phone] F [phone] [place] [address] [address] * Nirali Kearney RD - 04/05/2024 11:30 AM EST The patient received guidance on receiving healthcare through telehealth, including the use of HIPAA privacy -compliant technology for remote communication and its associated privacy risks. The patient was also informed of the limitations of treatment provided through telehealth and that in the event of a lost or failed video connection, the provider may call back or reschedule the visit. Alternatively, the patient may opt for an in-person visit. The patient gave consent for the use of video communication and provided care and confirmed that they were in a quiet and private location to discuss their health freely. The patient understands the visit will be submitted to their insurance and that they are responsible for any copay or deductible charges. Additionally, if the patient is LimitedEnglish Proficient, deaf, or hard of hearing, speech impaired, or has another disability which impairs their ability to communicate, the services of a qualified drawing kiln operator will be provided during the visit. Patients Location: home Total Time: 60 minutes INITIAL NUTRITION CONSULT Patient Name: Dwight Pepper Date of : 1985 Date of Service: 04/05/2024 SURGEON: Shi Vasquez MD DESIRED SURGERY: Medication Management waiting insurance CHIEF COMPLAINT: Obesity HISTORY: Dwight Pepper is a 38 y.o. Male who presents for initial nutrition visit for Weight loss management Reports reasons for wanting to lose weight: Overall Health, children What made you decide to have weight loss surgery? No surgery Do you know anyone who has had weight loss surgery? Did not discuss Previous Weight Loss Methods: went through bariatric program lost (53 lb) History of Dietitian/Practical Nursing Instructor Visits previously: Yes Ht Readings from Last 1 Encounters: 03/29/24 1.88 m (74 ) Wt today: Wt Readings from Last 4 Encounters: 04/05/24 154 kg (339 lb) 03/29/24 154 kg (339 lb) Body mass index is 43.53 kg/m??. Wt at initial: 339 Wt change since initial: 0 EBW = current - wt at BMI of 25: 339 - 180 = 159 Goal wt: 230 Highest/lowest wt: 360/220 Onset of obesity: more recent Family history of obesity: no Possible triggers to weight gain: Life events that lead to weight gain: got into accident after losing 53 lb through program, regained much of it back Factors making weight loss difficult: eats fast, but not fast food Weight change in the past year: maintained EATING HABITS/DIET RECALL: Breakfast: eggs (3-4), with crackers (6-7) saltines (soda), boiled banana Lunch: skip Dinner: 4 pm-5 pm rice, chicken, steak, sometimes with salad Snacks: apples and strawberries Beverages: water 2 bottles (protein shakes with almond milk) Dines out: Yes History of disordered eating: Did not discuss Skips meals: Yes lunch Pace of eating: Fast GI issues: Gastritis Food allergies / intolerances: None Exercise: Gym walk 15 minutes Reasons patient cannot / should not exercise: none SOCIAL HISTORY: 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 ACTIVE PROBLEM LIST: There is no problem list on file for this patient. PAST SURGICAL HISTORY: No past surgical history on file. PAST FAMILY HISTORY: No family history on file. ACTIVE MEDICATIONS: Current Outpatient Medications on File Prior to Visit Medication Sig Dispense Refill tirzepatide, weight loss, (Zepbound) 2.5 mg/0.5 mL injection Inject 0.5 mL (2.5 mg total) under theskin every 7 (seven) days for 4 doses. 2 mL 0 No current facility-administered medications on file prior to visit. ALLERGIES: No Known Allergies Nutrition diagnosis: Class III obesity related to {Inadequate Physical Activity as evidenced by A BMI 45.5 Patient-created Goals: 64 oz of water daily - preferably sipping throughout the day (no carbonation or sugar) 100- 120 grams of protein per day from lean protein sources such as chicken, turkey, fish, beans, etc. A minimum of 3 meals per day. Preferably 3 small meals and 2 snacks spaced out over the course of the day (every 3-5 hours) Each meal and snack should include protein Protein shakes can replace a meal or snack, look for 20-30 grams of protein, less than 5 grams of added sugar (orgradha meadows) Literature Provided: Build a healthy plate, Healthy snack handout, Protein content , Goal sheets, and RD contact information Interventions: Discuss the importance of eating at least 3 meals/day and the impact on metabolism, Discussed the importance of including protein with each meal and snack, Discussed the plate method and balanced meal, Discussed carbohydrate foods and impact on blood sugar levels, and Discussed theimportance of drinking enough water Nutrition assessment: Pt is 38 y.o. Male with h/o has no past medical history on file. Stage of change/Barriers to understanding: Pt is motivated to make changes to diet and lifestyle and No barriers to understanding Concerns regarding considerations for bariatric surgery: No surgery plan for pt a this time Monitoring/Evaluation: Monitor weight and Monitor progress toward nutrition goals RD to see patient for follow-up in 3 months Visit Time: The total time of this visit was 60 minutes of which we spent 60 minutes (>50% of the time spent) in direct [id number] consultation for counseling, reviewing medical record and/or coordinating the plan as described above. Nirali Kearney RD NUTRITION SERVICES documented in this encounter Plan of Treatment Upcoming Encounters Date Type Department Care Team (Late st Contact Info) Description 07/28/2024 10:15 AM EDT Office Visit Bariatric Surgery - [address] [phone] Shi Vasquez MD [address] [place] [address] [address] [place] [address] documented as of this encounter Visit Diagnoses Diagnosis Class 3 severe obesity without serious comorbidity with body mass index (BMI) of 45.0 to 49.9 in adult, unspecified obesity type (CMS/HCC)- Primary documented in this encounter
[2024-04-06 10:23] LABS: Basophils Percent Auto 0.5 % (0-2); Eosinophils Absolute Auto 0.2 X10*3/uL (0.0-0.4); Eosinophils Percent Auto 3.9 % (0-4); Hematocrit 38.9 % (42.0-52.0); Hemoglobin 13.2 g/dl (14.0-18.0); Imm Gran Abs Auto 0.02 X10*3/uL (0.00-0.03); Imm Gran Pct Auto 0.4 % (0.0-0.4); Lymphocytes Absolute Auto 2.1 X10*3/uL (1.2-4.9); Lymphocytes Percent Auto 37.2 % (20-40); Mean Corpuscular HGB Conc 33.9 g/dl (31.0-36.0); Mean Corpuscular Hemoglobin 31.7 pg (27.0-33.0); Mean Corpuscular Volume 93.3 fL (80.0-98.0); Mean Platelet Volume 10.1 fL (9.4-12.4); Monocytes Absolute Auto 0.5 X10*3/uL (0.1-1.2); Monocytes Percent Auto 9.5 % (2-11); Neutrophils Absolute Auto 2.8 x10*3/uL (2.0-8.3); Neutrophils Percent Auto 48.5 % (45-73); Platelet Count 319 X10*3/uL (160-400); Red Blood Count 4.17 X10*6/uL (4.60-5.80); Red Cell Distribution Width 11.7 % (11.0-16.0); White Blood Count 5.7 X10*3/uL (4.8-10.8)
[2024-04-06 10:57] LABS: Alanine Aminotransferase 24 U/L (0-40); Albumin Level 4.3 g/dL (3.5-5.0); Alkaline Phosphatase 55 U/L (39-117); Anion Gap 10 (12-20); Aspartate Amino Transferase 26 U/L (5-37); Bilirubin Total 0.6 mg/dL (0.0-1.0); Blood Urea Nitrogen 20 mg/dL (9-16); Carbon Dioxide 26 mmol/L (22-29); Chloride 105 mmol/L (96-108); Cholesterol 173 mg/dL (<200); Estimated Glomerular Filt Rate > 60; Glucose Fasting 98 mg/dL (60-99); HDL Cholesterol 42 mg/dL (>40); LDL Cholesterol Calculated 110 mg/dL (<100); Sodium 137 mmol/L (135-145); Total Protein 7.9 g/dL (6.5-8.0); Triglycerides 107 mg/dL (<150)
[2024-04-06 11:19] LABS: TSH reflex Free T4 1.64 uIU/mL (0.32-4.0); Vitamin D 25-OH Total 24.9 ng/mL (>30)
== END 2024-04-06 09:16 | disposition home or self-care (01) ==
LOC: HO.LAB 09:15
PROVIDERS: PCP Nurse Practitioner Family; Visit Provider Nurse Practitioner Family
DX: Z00.00 Encounter for general adult medical examination without abnormal findings (principal); R79.89 Other specified abnormal findings of blood chemistry
CPT/HCPCS: 36415; 80053; 80061; 82306; 84443; 85025

== ENCOUNTER 2024-04-11 13:20 | Outpatient (AMB) | payer OTHER, SELFPAY ==
--- NOTE | 2024-04-11 13:15 | A.OFFPC_ITS ---
Intake Visit Reasons: blood work Intake Note: patient here telehealth for lab review Transfer Car Operator Required: No Allergies No Known Allergies Allergy (Verified 04/11/24 13:45) Medication List - Last Reconciled 04/11/24 by Cary Swann CNP No Known Home Meds Tobacco use date assessed: 04/11/24 Dental Screening Dental Screen Date: 04/11/24 Did you have a dental visit in the last 12 months?: Yes Did you have a dental problem in the last 6 months where you did not have access to dental care?: No Was dental information given to patient?: Patient has dentist HPI HPI Comments History of Present Illness Details 38-year-old male, presents for a telehealth visit for review of recent lab results. He is mostly Danish speaking. He is accompanied by his . His last office visit was when he established care 09/14/2023. He reports pain intermittent pain to the penile frenulum during sexual intercourse. He denies infection to the area. He is uncircumcised. He requests consultation with a specialist. [facility] Medical History Recent foreign travel Surgical History No pertinent past surgical history Family History Mother Heart problem Daughter No problems noted. Daughter No problems noted. Son No problems noted. Son No problems noted. 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 Tereso Babin, Ginna Wren, Tyshawn Chu and colleagues, with an educational allan from [employer]. Review of Systems Const Details: Denies chills, Denies fatigue, Denies fever(s), Denies headache(s) and Denies weakness Cardiac Denies chest pain, Denies claudication, Denies leg edema, Denies lightheadedness, Denies palpitations, Denies dyspnea, Denies dyspnea on exertion, Denies orthopnea and Denies other (Loss of consciousness) Resp Denies cough, Denies excessive phlegm production, Denies dyspnea, Denies dyspnea on exertion, Denies snoring and Denies wheezing Reports as per HPI Physical exam (Primary Care) Tobacco/Smoking Status: Tobacco use Status Tobacco use date assessed 04/11/24 04/11/24 13:18 Patient Tobacco Use Status Never used Tobacco 04/11/24 13:18 Tobacco use type 09/14/23 10:37 e-Cigarette/Vaping Use Former Use 04/11/24 13:18 Thrive Assessment: Date of Thrive Assessment Date Thrive assessed 09/14/23 04/11/24 13:18 Const Other: Telehealth visit. No physical exam. Telehealth Telehealth Telehealth Platform: Telephone Location of provider rendering services: practice address Location of patient: address on file Patient Identification confirmed using: Name, : Yes Telehealth method: voice only Patient verbally consented to treatment: Yes Patient verbally consented to billing insurance company: Yes Patient informed of any privacy concerns related to visit: Yes Coding Level of Care Code Tele Est Pt Level 4 (52711) Diagnoses Vitamin D deficiency E55.9 Mild chronic anemia D64.9 Elevated LDL cholesterol level E78.00 Uncircumcised male Z78.9 Dyspareunia in male N53.12 Time Spent (min) 25 Assessment & Plan Assessment & Plan (1) Vitamin D deficiency: Code(s): E55.9 - Vitamin D deficiency, unspecified Category: Medical Plan: Recent vitamin-D level is low, 24.9 Will order vitamin D3 1000 units daily; advised to take as prescribed. Will recheck vitamin-D level. Advised to get blood work done 2-3 days before next visit Follow-up in 8 weeks or sooner with symptoms or concerns Verbalized understanding and agreed with treatment plan. (2) Mild chronic anemia: Code(s): D64.9 - Anemia, unspecified Category: Medical Plan: Recent RBC, and H&H levels are slightly low, 4.17 and 13.2/38.9 respectively. Iron studies in 2022 were unremarkable. Follow-up with symptoms or concerns. Verbalized understanding and agreed with treatment plan. (3) Elevated LDL cholesterol level: Code(s): E78.00 - Pure hypercholesterolemia, unspecified Category: Medical Plan: Recent LDL level is slightly elevated, 110. Advised to limit foods high in saturated fat and avoid foods high in trans fat. Routine exercise encouraged. Will monitor lipid panel levels periodically. Verbalized understanding and agreed with the plan. (4) Uncircumcised male: Code(s): Z78.9 - Other specified health status Category: Medical Plan: Intermittent pain to the penile frenulum during sexual intercourse. No infection to the area. Referred to [facility] urology. Follow-up with worsening or new symptoms. Verbalized understanding and agreed with treatment plan. (5) Dyspareunia in male: Code(s): N53.12 - Painful ejaculation Category: Medical Plan: Plan as above. Orders: Orders Vitamin D 25-OH Total 2 Months E55.9 - Vitamin D deficiency, unspecified Referrals Urology Referral N53.12 - Painful ejaculation, Z78.9 - Other specified health status Medications: New 2 cholecalciferol (vitamin D3) 25 mcg PO DAILY 30 days 30 tabs 3RF
--- OUTSIDE RECORDS SUMMARY | 2024-04-11 14:23 | XMS_ITS | Encounter Summary ---
Author Organization [facility] Address [address] [place] [address] Care Team Providers Care Production Troubleshooter Name Role Phone Unavailable Primary Care Provider Unavailabl e Reason for Referral * Medications - Denied Specialty Diagnoses / Procedures Referred By Elias kohli Referred To Contact Diagnoses Class 3 severe obesity due to excess calories without serious comorbidity with body mass index (BMI) of 40.0 to 44.9 in adult (CMS/[facility]) Shi Vasquez MD [address] [address] Phone: tel: fax: Referral ID Status Reason Start Date Expiration Date Visits Re quested Visits Authorized [id number] Denied 1 1 Reason for Visit * Reason Comments Consult New patient Encounter Details Date Type Department Care Team (Late st Contact Info) Description 03/29/2024 3:30 PM EST Office Visit Bariatric Surgery - [place] [address] [phone] Shi Vasquez MD [address] [address] Class 3 severe obesity due to excess calories without serious comorbidity with body mass index (BMI) of 40.0 to 44.9 in adult (CMS/[facility]) (Primary Dx) Social History Tobacco Use Types Packs/Day Years Used Date Smoking Tobacco: Never Assessed Sex and Gender Information Value Date Recorded Sex Assigned at Male 03/30/2024 4:43 PM EST Legal Sex Male 3:11 PM EST Gender Identity Male 03/30/2024 4:43 PM EST Sexual Orientation Straight 03/30/2024 4: 43 PM EST documented as of this encounter Last Filed [...] in this encounter Ordered Prescriptions Prescription Sig Dispense Quantity Refills Last Filled Start Date End Date tirzepatide, weight loss, (Zepbound) 2.5 mg/0.5 mL injectionIndicatio ns:Class 3 severe obesity due to excess calories without serious comorbidity with body mass index (BMI) of 40.0 to 44.9 in adult (CMS/[facility]) Inject 0.5 mL (2.5 mg total) under the skin every 7 (seven) days for 4 doses. 2 mL 03/29/2024 04/20/2024 documented in this encounter Progress Notes * Shi Vasquez MD - 03/29/2024 3:30 PM EST Referring physician: PCP Ms. Pepper is a 38 y.o. year old male who presents for surgical consultation regarding obesity. HPI: Mr. Pepper 2009 when he came to [facility]. Was ready to have bariatric surgery and [...] (BMI) of 40.0 to 44.9 in adult ([facility]) Hemoglobin A1c Lipid panel with reflex to [...] AM EDT Office Visit Bariatric Surgery - [place] [address] [facility] [address] [place] [phone] Shi Vasquez MD 175 [facility] [address] [place] [address] documented as of this encounter Results * Thyroid stimulating hormone (03/30/2024 10:42 AM EST) Pathologist [facility] TSH 1.91 0.40 - 4.00 mcIU/mL LAB CHEMISTRY METHOD 03/30/2024 3:33 PM EST [facility] Blood Venous blood specimen / Unknown Venipuncture / Unknown 03/30/2024 10:42 AM EST 03/30/2024 10:42 AM EST us Shi Vasquez MD LAB BLOOD ORDERABLES Final R esult [facility] [address] [place] [address], * Hepatic function panel (03/30/2024 10:42 AM EST) [facility] Total Protein 7.7 6.0 - 8.0 g/dL LAB CHEMISTRY METHOD 03/30/2024 3:28 PM EST [facility] Albumin 4.0 3.2 - 5.0 g/dL LAB CHEMISTRY METHOD 03/30/2024 3:28 PM [facility] Total Bilirubin 0.5 0.0 - 1.4 mg/dL LAB CHEMISTRY METHOD 03/30/2024 3:28 PM [facility] Bilirubin, Direct <0.1 0.0 - 0.3 mg/dL LAB CHEMISTRY METHOD 03/30/2024 3:28 PM [facility] Bilirubin, Indirect LAB CHEMISTRY METHOD 03/30/2024 3:28 PM [facility] Comment:Unable to calculate Indirect Bilirubin. ALT (SGPT) 30 10 - 60 unit/L LAB CHEMISTRY METHOD 03/30/2024 3:28 PM [facility] AST (SGOT) 18 10 - 42 unit/L LAB CHEMISTRY METHOD 03/30/2024 3:28 PM [facility] Alkaline Phosphatase 59 42 - 121 unit/L LAB CHEMISTRY METHOD 03/30/2024 3:28 PM [facility] Blood Venous blood specimen / Unknown Venipuncture / Unknown 03/30/2024 10:42 AM EST 03/30/2024 10:42 AM EST us Shi Vasquez MD LAB BLOOD ORDERABLES Final R esult [facility] [address] [place] [address], [place] [phone] * Lipid panel with reflex to direct LDL (03/30/2024 10:42 AM EST) Cholesterol 167 0 - 200 mg/dL LAB CHEMISTRY METHOD 03/30/2024 3:28 PM [facility] Triglycerides 114 0 - 150 mg/dL LAB CHEMISTRY METHOD 03/30/2024 3:28 PM [facility] HDL 46 >=40 mg/dL LAB CHEMISTRY METHOD 03/30/2024 3:28 PM [facility] LDL Calculated 98 0 - 100 mg/dL LAB CHEMISTRY METHOD 03/30/2024 3:28 PM [facility] VLDL Cholesterol Prabhakar 22.8 mg/dL LAB CHEMISTRY METHOD 03/30/2024 3:28 PM [facility] Non HDL Chol. (LDL+VLDL) 121 <145 mg/dL LAB CHEMISTRY METHOD 03/30/2024 3:28 PM [facility] Chol/HDL Ratio 3.6 0.0 - 4.4 LAB CHEMISTRY METHOD 03/30/2024 3:28 PM [facility] Blood Venous blood specimen / Unknown Venipuncture / Unknown 03/30/2024 10:42 AM EST 03/30/2024 10:42 AM EST us Shi Vasquez MD LAB BLOOD ORDERABLES Final R esult Performing Organization Address City/[facility]/ZIP Co de Phone Number [facility] [address] [place] [address], [place] [phone] * Hemoglobin A1c (03/30/2024 10:42 AM EST) Hemoglobin A1C 4.9 <6.5 % LAB CHEMISTRY METHOD 03/30/2024 8:27 PM EST [facility] Mean Bld Glu Estim. 94 mg/dL LAB CHEMISTRY METHOD 03/30/2024 8:27 PM EST [facility] Blood Venous blood specimen / Unknown Venipuncture / Unknown 03/30/2024 10:42 AM EST 03/30/2024 10:42 AM EST us Shi Vasquez MD LAB BLOOD ORDERABLES Final R esult Performing Organization Address City/[facility]/ZIP Co de Phone Number [facility] [address] [place] [address], [place] [phone] documented in this encounter Visit Diagnoses Diagnosis Class 3 severe obesity due to excess calories without serious comorbidity with body mass index (BMI) of 40.0 to 44.9 in adult (CMS/HCC)- Primary documented in this encounter
--- OUTSIDE RECORDS SUMMARY | 2024-04-11 14:23 | XMS_ITS | Encounter Summary ---
Author Organization [facility] Address [address] [place] [address] Care Team Providers Care Fur Scraper Name Role Phone Unavailable Primary Care Provider Unavailabl e Encounter Details Date Type Department Care Team (Late st Contact Info) Description 04/05/2024 11:30 AM EST Telemedicine Bariatric Surgery - [address] [phone] Nirali Kearney, EDU [address] [phone] Class 3 severe obesity without serious comorbidity [...] (orgain, premiere) .Nirali Kearney RDN Bariatric Dietitian [facility] [email or web address] W [phone] F [phone] [place] [address] [address] * Nirali Kearney RD - [...] to communicate, the services of a qualified artisan plasterer will be provided during the visit. Patients [...] bariatric program lost (53 lb) History of Dietitian/Bellows Assembler Visits previously: Yes Ht Readings from Last [...] (>50% of the time spent) in direct [id number] consultation for counseling, reviewing medical record and/or coordinating the plan as described above. Nirali Kearney RD NUTRITION SERVICES documented in this encounter Plan of Treatment Upcoming Encounters Date Type Department Care Team (Late st Contact Info) Description 07/28/2024 10:15 AM EDT Office Visit Bariatric Surgery - [address] [phone] Shi Vasquez MD [address] [place] [address] [address] [place] [address] documented as of this encounter Visit Diagnoses Diagnosis Class 3 severe obesity without serious comorbidity with body mass index (BMI) of 45.0 to 49.9 in adult, unspecified obesity type (CMS/HCC)- Primary documented in this encounter
--- OUTSIDE RECORDS SUMMARY | 2024-04-11 14:24 | XMS_ITS | Clinical Summary ---
Author Organization [facility] [place] Address [address] [place] [address] Care Team Providers Care Right Of Way Manager Name Role Phone Unavailable Primary Care Provider Unavailabl e Allergies No known active allergies Medications tirzepatide, weight loss, (Zepbound) 2.5 mg/0.5 mL injectionIndicat ions:Class 3 severe obesity due to excess calories without serious comorbidity with body mass index (BMI) of 40.0 to 44.9 in adult (CMS/HCC) Inject 0.5 mL (2.5 mg total) under the skin every 7 (seven) days for 4 doses. 2 mL 03/29/2024 5 Active Encounters Date Type Department Care Team Description 04/05/2024 11:30 AM EST Telemedicine Bariatric Surgery [address] [phone] Class 3 severe obesity without serious comorbidity with body mass index (BMI) of 45.0 to 49.9 in adult, unspecified obesity type (CMS/HCC) (Primary Dx) 03/30/2024 Telephone Bariatric Surgery [address] [phone] Shi Vasquez MD 03/29/2024 3:30 PM EST Office Visit Bariatric Surgery [address] [phone] Shi Vasquez MD Class 3 severe obesity [...] Orientation Straight 03/30/2024 4: 43 PM EST Last Filed Vital Signs Vital Sign Reading [...] AM EDT Office Visit Bariatric Surgery - [place] [address] [facility] [address] [place] [phone] Shi Vasquez MD [address] [facility] [address] [place] [address] Health Maintenance Due Date Last Done Comments DTaP,Tdap,and Td Vaccines (1 - Tdap) 1993 Hepatitis B Vaccines (1 of 3 - [...] patient's age to complete this topic Meningococcal B Vacine Aged Out No lo nger eligible based on patient's age to complete [...] (BMI) of 40.0 to 44.9 in adult ([facility]) HEPATIC FUNCTION PANEL Routine 03/30/2024 10:42 AM EST Class 3 severe obesity due to excess calories without serious comorbidity with body mass index (BMI) of 40.0 to 44.9 in adult ([facility]) LIPID PANEL WITH REFLEX TO DIRECT LDL Routine 03/30/2024 10:42 AM EST Class 3 severe obesity due to excess calories without serious comorbidity with body mass index (BMI) of 40.0 to 44.9 in adult ([facility]) HEMOGLOBIN A1C Routine 03/30/2024 10:42 AM EST Class 3 severe obesity due to excess calories without serious comorbidity with body mass index (BMI) of 40.0 to 44.9 in adult ([facility]) from Last 3 Months Results * Lipid panel with reflex to direct LDL (03/30/2024 10:42 AM EST) Cholesterol 167 0 - 200 mg/dL LAB CHEMISTRY METHOD 03/30/2024 3:[address] [facility] Triglycerides 114 0 - 150 mg/dL LAB CHEMISTRY METHOD 03/30/2024 3:28 PM [facility] HDL 46 >=40 mg/dL LAB CHEMISTRY METHOD 03/30/2024 3:28 PM [facility] LDL Calculated 98 0 - 100 mg/dL LAB CHEMISTRY METHOD 03/30/2024 3:[address] [facility] VLDL Cholesterol Prabhakar 22.8 mg/dL LAB CHEMISTRY METHOD 03/30/2024 3:[address] [facility] Non HDL Chol. (LDL+VLDL) 121 <145 mg/dL LAB CHEMISTRY METHOD 03/30/2024 3:28 PM [facility] Chol/HDL Ratio 3.6 0.0 - 4.4 LAB CHEMISTRY METHOD 03/30/2024 3:[address] [facility] Blood Venous blood specimen / Unknown Venipuncture / Unknown 03/30/2024 10:42 AM EST 03/30/2024 10:42 AM EST us Shi Vasquez MD LAB BLOOD ORDERABLES Final R esult [facility] [address] [place] [address], * Thyroid stimulating hormone (03/30/2024 10:42 AM EST) [facility] TSH 1.91 0.40 - 4.00 mcIU/mL LAB CHEMISTRY METHOD 03/30/2024 3:[address] [facility] Blood Venous blood specimen / Unknown Venipuncture / Unknown 03/30/2024 10:42 AM EST 03/30/2024 10:42 AM EST us Shi Vasquez MD LAB BLOOD ORDERABLES Final R esult Performing Organization Address City/[facility]/ZIP Co de Phone Number [facility] [address] [place] [address], [place] [phone] * Hemoglobin A1c (03/30/2024 10:42 AM EST) [facility] Hemoglobin A1C 4.9 <6.5 % LAB CHEMISTRY METHOD 03/30/2024 8:[address] [facility] Mean Bld Glu Estim. 94 mg/dL LAB CHEMISTRY METHOD 03/30/2024 8:[address] [facility] Blood Venous blood specimen / Unknown Venipuncture / Unknown 03/30/2024 10:42 AM EST 03/30/2024 10:42 AM EST Shi Vasquez MD LAB BLOOD ORDERABLES Final R esult Performing Organization Address [facility]/ZIP Co de Phone Number [facility] [address] [place] [address], [place] [phone] * Hepatic function panel (03/30/2024 10:42 AM EST) [facility] Total Protein 7.7 6.0 - 8.0 g/dL LAB CHEMISTRY METHOD 03/30/2024 3:28 PM [facility] Albumin 4.0 3.2 - 5.0 g/dL LAB CHEMISTRY METHOD 03/30/2024 3:28 PM [facility] Total Bilirubin 0.5 0.0 - 1.4 mg/dL LAB CHEMISTRY METHOD 03/30/2024 3:28 PM [facility] Bilirubin, Direct <0.1 0.0 - 0.3 mg/dL LAB CHEMISTRY METHOD 03/30/2024 3:28 PM [facility] Bilirubin, Indirect LAB CHEMISTRY METHOD 03/30/2024 3:28 PM [facility] Comment:Unable to calculate Indirect Bilirubin. ALT (SGPT) 30 10 - 60 unit/L LAB CHEMISTRY METHOD 03/30/2024 3:[address] [facility] AST (SGOT) 18 10 - 42 unit/L LAB CHEMISTRY METHOD 03/30/2024 3:[address] [facility] Alkaline Phosphatase 59 42 - 121 unit/L LAB CHEMISTRY METHOD 03/30/2024 3:[address] [facility] Blood Venous blood specimen / Unknown Venipuncture / Unknown 03/30/2024 10:42 AM EST 03/30/2024 10:42 AM EST us Shi Vasquez MD LAB BLOOD ORDERABLES Final R esult [facility] [address] [place] [address], [place] [phone] from Last 3 Months Insurance [facility] [place] [address]
--- OUTSIDE RECORDS SUMMARY | 2024-04-11 14:24 | XMS_ITS | Encounter Summary ---
Author Organization [facility] Address [address] [place] [address] Care Team Providers Care Editor Trade Journal Name Role Phone Unavailable Primary Care Provider Unavailabl e Encounter Details Date Type Department Care Team (Late st Contact Info) Description 03/30/2024 Telephone Bariatric Surgery - [place] [address] [facility] [address] [place] [phone] Shi Vasquez MD [address] [place] [address] Social History Tobacco Use Types Packs/Day Years Used Date Smoking Tobacco: Never Assessed Sex and Gender Information Value Date Recorded Sex Assigned at Male 03/30/2024 4:43 PM EST Legal Sex Male 3:11 PM EST Gender Identity Male 03/30/2024 4:43 PM EST Sexual Orientation Straight 03/30/2024 4: 43 PM EST documented as of this encounter Progress Notes * Michelle Andrade MA - 03/30/2024 8:40 AM EST We heard back in regards to the prior authorization we submitted on your behalf for Joshuavlelsie. Your insurance will not approve an injectable [...] AM EDT Office Visit Bariatric Surgery - [place] [address] [facility] [address] [place] [phone] Shi Vasquez MD [address] [facility] [address] [facility] [address] [place] [address] documented as of this encounter Visit Diagnoses Not on filedocumented in this encounter
== END 2024-04-11 16:03 | disposition home or self-care (01) ==
LOC: HO.HMCFM 13:20
PROVIDERS: PCP Nurse Practitioner Family; Visit Provider Nurse Practitioner Family
DX: D64.9 Anemia, unspecified (principal); E55.9 Vitamin D deficiency, unspecified; E78.00 Pure hypercholesterolemia, unspecified; Z78.9 Other specified health status; N53.12 Painful ejaculation

== ENCOUNTER 2024-06-08 13:16 | Outpatient (AMB) | payer OTHER, SELFPAY ==
--- NOTE | 2024-06-08 13:21 | A.OFFVIS_ITS ---
Intake Visit Reasons: painful ejaculation/penile pain Intake Note: New patient presents today for initial visit for painful ejaculation/penile pain Urology Medication:none Blood Thinner:none Antibiotic Allergies:none Bus And [employer] Integration Senior Manager Services: Bus And Sys Integration Senior Manager Present Bus And [employer] Integration Senior Manager Name: Sundeep [id number] Allergies No Known Allergies Allergy (Verified 06/08/24 13:42) Medication List - Last Reconciled 06/08/24 by LINDSEY Maynard- cholecalciferol (vitamin D3) 25 mcg PO DAILY 30 days HPI Comments Details: Dwight is a very pleasant 38-year-old Comoran-speaking male patient of Dr. Swann. He presents to the office today as a new patient for consultation for potential frenulectomy. In discussion with the patient today he reports a longstanding history of penile pain upon erections due to frenulum tightness. He reports this has been an issue for ongoing years however feels it has become more bothersome. In assessment of the patient today the penis is uncircumcised and frenulum does appear shortened otherwise no open areas, lesions, and or drainage noted throughout the area. He denies urinary urgency, urinary frequency, incontinence, nocturia, hematuria, dysuria, foul smelling urine, changes to urinary stream, flank pain, fever, and or chills. He is happy with his current voiding parameters. We discussed further treatment options and risks and benefits of these treatment options. Discussed plan of care with Dr. Roman will schedule for in office frenulectomy. Plan The patient will undergo a frenulectomy to address tight phrenulum. Benefits include resolution of erection pain. The patient prefers local anesthesia. Risks discussed include infection and bleeding. Antibiotic prophylaxis will be given. The procedure will proceed once insurance authorization is confirmed. Patient was informed and verbally consented to the use of an ambient scribe for clinic note documentation during this visit. Discussion Notes I discussed with the patient the tight phrenulum and associated pain during erection, outlining the procedure of frenulectomy as a solution. The patient expressed his preference for the frenulectomy which aligns with our treatment plan to resolve his symptoms. The potential risks of infection and bleeding were discussed, alongside the benefits of relieving his symptoms. We also talked about the options for anesthesia, with the patient leaning towards local anesthesia for the procedure. Approval from the insurance company was noted as necessary prior to scheduling. The role of the surgical physician assistant was explained, and follow-up care instructions were committed to ensure understanding through [place]an communication. [facility] Medical History Recent foreign travel Surgical History No pertinent past surgical history Family History Mother Heart problem Daughter No problems noted. Daughter No problems noted. Son No problems noted. Son No problems noted. 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 Current occupational exposures/hazards: No Cognitive needs: No Hearing needs: No Vision needs: No Review of Systems Const All systems reviewed & are unremarkable except as noted in HPI and below Physical Exam Const General: cooperative, healthy appearing, comfortable, no acute distress, well developed, alert and awake Nutritional Appearance: overweight Orientation/consciousness: patient oriented x3 Limitations: language barrier HEENT Head: Yes normal to inspection, Yes normocephalic and Yes atraumatic Ears: hearing grossly normal bilaterally Eyes General: appearance normal, both eyes and all related structures Neck Neck: Yes normal visual inspection and Yes trachea midline Chest Chest palpation & inspection: normal inspection of the chest Resp Effort & Inspection: normal respiratory effort and able to speak in complete sentences Cardio Rate: regular rate GI Inspection: Yes normal to inspection Other: as per HPI General: Yes no CVA tenderness Back/Spine/Pelvis Back: no CVA tenderness Skin General skin exam: no rashes or lesions noted Neuro General: patient oriented x3 Extrem General: Yes normal to inspection Psych Appearance: grossly normal and well kempt Mental Status: mental status grossly normal Speech and movement: Normal speech and movement present and Clear speech present Affect: normal affect Attitude: cooperative Thought process: Normal thought process present Thought content: Normal thought content present Insight: Fair insight present (Psych) Judgement: Fair judgement present (Psych) Assessment & Plan Assessment & Plan (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 Roman; will plan for in office frenulectomy as discussed; risks and benefits were reviewed. All questions were answered. Patient otherwise denies any bothersome urinary issues. He reports be happy with current voiding parameters. Follow-up per doctor's orders; or sooner with any issues, concerns, and or questions. Patient Instructions: The patient had an opportunity to ask questions regarding the treatment plan. All questions were answered. Physical exam, labs, and imaging were discussed and reviewed in detail. As well as risks, benefits, and discussion of treatment choices. No major barriers to understanding were identified. The patient expressed understanding and agreement with the above treatment plan. The patient was made aware they should contact our office by phone for worsening of their current condition, the appearance of new symptoms, or with any questions or concerns. Compliance is encouraged with any medications and follow up testing that is ordered. It is a privilege to be allowed the opportunity to participate in? your urological care.? Again, if you have any questions or concerns If you have any questions or concerns please do not hesitate to contact me. The office is [phone]. This note is constructed using voice recognition software. While every effort has been made to ensure accuracy recording studio set up worker errors may have been included. Yours sincerely, STEPHANIE Maynard Coding Level of Care Code New Pt Level 3 (95028) Diagnoses Short frenulum of penis Q55.69
--- OUTSIDE RECORDS SUMMARY | 2024-06-08 15:19 | XMS_ITS | Clinical Summary ---
Author Organization [facility] Address [address] [place] [address] Care Team Providers Care Diamond Sizer Name Role Phone Unavailable Primary Care Provider Unavailabl e Allergies No known active allergies Medications No known medications Encounters Date Type Department Care Team Description 04/25/2024 Telephone Bariatric Surgery - [address] [phone] Shi Vasquez MD 04/05/2024 11:30 AM EST Telemedicine Bariatric Surgery - [address] [phone] Class 3 severe obesity without serious comorbidity with body mass index (BMI) of 45.0 to 49.9 in adult, unspecified obesity type (CMS/HCC) (Primary Dx) 03/30/2024 Telephone Bariatric Surgery [address] [phone] Shi Vasquez MD 03/29/2024 3:30 PM EST Office Visit Bariatric Surgery [address] [phone] Shi Vasquez MD Class 3 severe obesity [...] Upcoming Encounters Date Type Department Care Team ([facility] st Contact Info) Description 08/01/2024 10:15 AM EDT Office Visit Bariatric Surgery - [place] [address] [facility] [address] [place] [phone] Shi Vasquez MD 175 [facility] [address] [place] [address] Health Maintenance Due Date Last Done Comments DTaP,Tdap,and Td Vaccines (1 - Tdap) 2005 Hepatitis B Vaccines (1 of 3 - 19+ 3-dose series) 2005 COVID-19 Vaccine (3 - 2023-2 5 season) 2023 07/04/2020, 06/13/2020 Depression Screening 01/24/2024 HIV Screening 01/24/2024 Hepatitis C Screening 01/24/2024 Social Influencers of Health Screening 01/24/2024 Influenza Vaccine (Season Ended) 2024 Cholesterol Screening (Lipid Panel) 03/30/2029 03/30/2024 HIB [...] age to complete this topic Meningococcal B Vaccine Aged Out No l onger eligible based on patient's age to complete [...] (BMI) of 40.0 to 44.9 in adult ([facility]) HEPATIC FUNCTION PANEL Routine 03/30/2024 10:42 AM EST Class 3 severe obesity due to excess calories without serious comorbidity with body mass index (BMI) of 40.0 to 44.9 in adult ([facility]) LIPID PANEL WITH REFLEX TO DIRECT LDL Routine 03/30/2024 10:42 AM EST Class 3 severe obesity due to excess calories without serious comorbidity with body mass index (BMI) of 40.0 to 44.9 in adult ([facility]) HEMOGLOBIN A1C Routine 03/30/2024 10:42 AM EST Class 3 severe obesity due to excess calories without serious comorbidity with body mass index (BMI) of 40.0 to 44.9 in adult ([facility]) from Last 3 Months Results * Lipid panel with reflex to direct LDL (03/30/2024 10:42 AM EST) Cholesterol 167 0 - 200 mg/dL LAB CHEMISTRY METHOD 03/30/2024 3:28 PM EST [facility] Triglycerides 114 0 - 150 mg/dL LAB CHEMISTRY METHOD 03/30/2024 3:28 PM EST [facility] HDL 46 >=40 mg/dL LAB CHEMISTRY METHOD 03/30/2024 3:28 PM EST [facility] LDL Calculated 98 0 - 100 mg/dL LAB CHEMISTRY METHOD 03/30/2024 3:28 PM [facility] VLDL Cholesterol Prabhakar 22.8 mg/dL LAB CHEMISTRY METHOD 03/30/2024 3:28 PM EST [facility] Non HDL Chol. (LDL+VLDL) 121 <145 mg/dL LAB CHEMISTRY METHOD 03/30/2024 3:28 PM EST [facility] Chol/HDL Ratio 3.6 0.0 - 4.4 LAB CHEMISTRY METHOD 03/30/2024 3:28 PM [facility] Blood Venous blood specimen / Unknown Venipuncture / Unknown 03/30/2024 10:42 AM EST 03/30/2024 10:42 AM EST us Shi Vasquez MD LAB BLOOD ORDERABLES Final R esult [facility] [address] [place] [address], [place] [phone] * Thyroid stimulating hormone (03/30/2024 10:42 AM EST) TSH 1.91 0.40 - 4.00 mcIU/mL LAB CHEMISTRY METHOD 03/30/2024 3:33 PM EST [facility] Blood Venous blood specimen / Unknown Venipuncture / Unknown 03/30/2024 10:42 AM EST 03/30/2024 10:42 AM EST us Shi Vasquez MD LAB BLOOD ORDERABLES Final R esult [facility] [address] [place] [address], [place] [phone] * Hemoglobin A1c (03/30/2024 10:42 AM EST) Pathologist [facility] Hemoglobin A1C 4.9 <6.5 % LAB CHEMISTRY METHOD 03/30/2024 8:27 PM [facility] Mean Bld Glu Estim. 94 mg/dL LAB CHEMISTRY METHOD 03/30/2024 8:27 PM [facility] Blood Venous blood specimen / Unknown Venipuncture / Unknown 03/30/2024 10:42 AM EST 03/30/2024 10:42 AM EST us Shi Vasquez MD LAB BLOOD ORDERABLES Final R esult [facility] [address] [place] [address], [place] [phone] * Hepatic function panel (03/30/2024 10:42 AM EST) [facility] Total Protein 7.7 6.0 - 8.0 g/dL LAB CHEMISTRY METHOD 03/30/2024 3:28 PM [facility] Albumin 4.0 3.2 - 5.0 g/dL LAB CHEMISTRY METHOD 03/30/2024 3:28 PM [facility] Total Bilirubin 0.5 0.0 - 1.4 mg/dL LAB CHEMISTRY METHOD 03/30/2024 3:28 PM [facility] Bilirubin, Direct <0.1 0.0 - 0.3 mg/dL LAB CHEMISTRY METHOD 03/30/2024 3:28 PM [facility] Bilirubin, Indirect LAB CHEMISTRY METHOD 03/30/2024 3:28 PM [facility] Comment:Unable to calculate Indirect Bilirubin. ALT (SGPT) 30 10 - 60 unit/L LAB CHEMISTRY METHOD 03/30/2024 3:28 PM [facility] AST (SGOT) 18 10 - 42 unit/L LAB CHEMISTRY METHOD 03/30/2024 3:28 PM [facility] Alkaline Phosphatase 59 42 - 121 unit/L LAB CHEMISTRY METHOD 03/30/2024 3:28 PM EST [facility] Blood Venous blood specimen / Unknown Venipuncture / Unknown 03/30/2024 10:42 AM EST 03/30/2024 10:42 AM EST us Shi Vasquez MD LAB BLOOD ORDERABLES Final R esult [facility] [address] [place] [address], [place] [phone] from Last 3 Months Insurance [facility] [employer]
== END 2024-06-08 13:40 | disposition home or self-care (01) ==
PROVIDERS: PCP Nurse Practitioner Family; Visit Provider Nurse Practitioner Family
DX: Q55.69 Other congenital malformation of penis (principal)
CPT/HCPCS: 99203

== ENCOUNTER → 2024-06-08 13:16 | Outpatient (BNVA) | payer OTHER, SELFPAY | PROVIDERS: PCP Nurse Practitioner Family; Visit Provider Nurse Practitioner Family | DX: Q55.69 Other congenital malformation of penis (principal) | CPT/HCPCS: 99202 ==

== ENCOUNTER 2024-06-13 08:44 | Outpatient (REF) | payer OTHER, SELFPAY ==
--- OUTSIDE RECORDS SUMMARY | 2024-06-13 09:24 | XMS_ITS | Clinical Summary ---
Author Organization [facility] [place] Address [address] [place] [address] Care Team Providers Care Track Laminating Machine Tender Name Role Phone Unavailable Primary Care Provider Unavailabl e Allergies No known active allergies Medications No known medications Encounters Date Type Department Care Team Description 04/25/2024 Telephone Bariatric Surgery - [address] [address] Shi Vasquez MD 04/05/2024 11:30 AM EST Telemedicine Bariatric Surgery - [address] [address] Class 3 severe obesity without serious comorbidity with body mass index (BMI) of 45.0 to 49.9 in adult, unspecified obesity type (CMS/HCC V24, CMS/HCC V28) (Primary Dx) 03/30/2024 Telephone Bariatric Surgery - [address] [address] Shi Vasquez MD 03/29/2024 3:30 PM EST Office Visit Bariatric Surgery [address] [address] Shi Vasquez MD Class 3 severe obesity due to excess calories without serious comorbidity with body mass index (BMI) of 40.0 to 44.9 in adult (CMS/HCC V24, CMS/HCC V28) (Primary Dx) from Last 3 Months Social [...] Upcoming Encounters Date Type Department Care Team ([facility] st Contact Info) Description 08/01/2024 10:15 AM EDT Office Visit Bariatric Surgery - [place] 175 [facility] [address] [place] [phone] Shi Vasquez MD [address] [address] Health Maintenance Due Date Last Done Comments DTaP,Tdap,and Td Vaccines (1 - Tdap) 2005 Hepatitis B Vaccines (1 of 3 - 19+ 3-dose series) 2005 COVID-19 Vaccine ( - 2023-2 5 season) 2023 07/04/2020, 06/13/2020 [...] (BMI) of 40.0 to 44.9 in adult ([facility] V24, [facility] V28) HEPATIC FUNCTION PANEL Routine 03/30/2024 10:42 AM EST Class 3 severe obesity due to excess calories without serious comorbidity with body mass index (BMI) of 40.0 to 44.9 in adult ([facility] V24, [facility] V28) LIPID PANEL WITH REFLEX TO DIRECT LDL Routine 03/30/2024 10:42 AM EST Class 3 severe obesity due to excess calories without serious comorbidity with body mass index (BMI) of 40.0 to 44.9 in adult ([facility] V24, [facility] V28) HEMOGLOBIN A1C Routine 03/30/2024 10:42 AM EST Class 3 severe obesity due to excess calories without serious comorbidity with body mass index (BMI) of 40.0 to 44.9 in adult ([facility] V24, [facility] V28) from Last 3 Months Results * Lipid panel with reflex to direct LDL (03/30/2024 10:42 AM EST) Cholesterol 167 0 - 200 mg/dL LAB CHEMISTRY METHOD 03/30/2024 3:28 PM EST [facility] Triglycerides 114 0 - 150 mg/dL LAB CHEMISTRY METHOD 03/30/2024 3:28 PM EST [facility] HDL 46 >=40 mg/dL LAB CHEMISTRY METHOD 03/30/2024 3:28 PM [facility] LDL Calculated 98 0 - 100 mg/dL LAB CHEMISTRY METHOD 03/30/2024 3:28 PM EST [facility] VLDL Cholesterol Prabhakar 22.8 mg/dL LAB CHEMISTRY METHOD 03/30/2024 3:28 PM [facility] Non HDL Chol. (LDL+VLDL) 121 <145 mg/dL LAB CHEMISTRY METHOD 03/30/2024 3:28 PM [facility] Chol/HDL Ratio 3.6 0.0 - 4.4 LAB CHEMISTRY METHOD 03/30/2024 3:28 PM [facility] Blood Venous blood specimen / Unknown Venipuncture / Unknown 03/30/2024 10:42 AM EST 03/30/2024 10:42 AM EST us Shi Vasquez MD LAB BLOOD ORDERABLES Final R esult Performing Organization Address City/[facility]/ZIP Co de Phone Number [facility] [address] [place] [address], [place] [phone] * Thyroid stimulating hormone (03/30/2024 10:42 AM EST) TSH 1.91 0.40 - 4.00 mcIU/mL LAB CHEMISTRY METHOD 03/30/2024 3:33 PM EST [facility] Blood Venous blood specimen / Unknown Venipuncture / Unknown 03/30/2024 10:42 AM EST 03/30/2024 10:42 AM EST us Shi Vasquez MD LAB BLOOD ORDERABLES Final R esult [facility] [address] [place] [address], [place] [phone] * Hemoglobin A1c (03/30/2024 10:42 AM EST) [facility] Hemoglobin A1C 4.9 <6.5 % LAB CHEMISTRY METHOD 03/30/2024 8:27 PM [facility] Mean Bld Glu Estim. 94 mg/dL LAB CHEMISTRY METHOD 03/30/2024 8:27 PM [facility] Blood Venous blood specimen / Unknown Venipuncture / Unknown 03/30/2024 10:42 AM EST 03/30/2024 10:42 AM EST us Shi Vasquez MD LAB BLOOD ORDERABLES Final R esult [facility] [address] [place] [address], [place] [phone] * Hepatic function panel (03/30/2024 10:42 AM EST) [facility] Total Protein 7.7 6.0 - 8.0 g/dL LAB CHEMISTRY METHOD 03/30/2024 3:28 PM [facility] Albumin 4.0 3.2 - 5.0 g/dL LAB CHEMISTRY METHOD 03/30/2024 3:28 PM [facility] Total Bilirubin 0.5 0.0 - 1.4 mg/dL LAB CHEMISTRY METHOD 03/30/2024 3:28 PM [facility] Bilirubin, Direct <0.1 0.0 - 0.3 mg/dL LAB CHEMISTRY METHOD 03/30/2024 3:28 PM [facility] Bilirubin, Indirect LAB CHEMISTRY METHOD 03/30/2024 3:28 PM [facility] Comment:Unable to calculate Indirect Bilirubin. ALT (SGPT) 30 10 - 60 unit/L LAB CHEMISTRY METHOD 03/30/2024 3:28 PM EST [facility] AST (SGOT) 18 10 - 42 unit/L LAB CHEMISTRY METHOD 03/30/2024 3:28 PM EST [facility] Alkaline Phosphatase 59 42 - 121 unit/L LAB CHEMISTRY METHOD 03/30/2024 3:28 PM EST [facility] Blood Venous blood specimen / Unknown Venipuncture / Unknown 03/30/2024 10:42 AM EST 03/30/2024 10:42 AM EST us Shi Vasquez MD LAB BLOOD ORDERABLES Final R esult [facility] [address] [place] [address], [place] [phone] from Last 3 Months Insurance [facility]
[2024-06-13 10:14] LABS: Vitamin D 25-OH Total 25.8 ng/mL (>30)
== END 2024-06-13 08:45 | disposition home or self-care (01) ==
LOC: HO.LAB 08:44
PROVIDERS: PCP Nurse Practitioner Family; Visit Provider Nurse Practitioner Family
DX: E55.9 Vitamin D deficiency, unspecified (principal)
CPT/HCPCS: 36415; 82306

== ENCOUNTER 2024-06-13 14:12 | Outpatient (AMB) | payer OTHER, SELFPAY ==
--- NOTE | 2024-06-13 14:07 | A.OFFPC_ITS ---
Intake Visit Reasons: Telehealth 2 mos f/u vitamin D deficiency Intake Note: patient here for 2 month follow up on vit D deficiency Clinical Studies Specialist Required: Yes Information Interpreted: non-clinical & clinical Allergies No Known Allergies Allergy (Verified 06/13/24 14:07) Tobacco use date assessed: 06/13/24 Dental Screening Dental Screen Date: 06/13/24 Did you have a dental visit in the last 12 months?: No Did you have a dental problem in the last 6 months where you did not have access to dental care?: No Was dental information given to patient?: Patient has dentist HPI HPI Comments History of Present Illness Details 38-year-old [place]an-speaking male presen ts for telehealth visit for vitamin-D deficiency. He admits to taking vitamin D3 25 mcg daily without adverse reactions. However, he did not take the medication for 2 weeks while recently on vacation in the [place]; he started taking the medication a week ago. He offers no complaints and denies acute symptoms at this time. Interpretation by a professional seismic interpreter via telephone. [facility] Medical History Recent foreign travel Surgical History No pertinent past surgical history Family History Mother Heart problem Daughter No problems noted. Daughter No problems noted. Son No problems noted. Son No problems noted. 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 Tereso Babin, Ginna Wren, Tyshawn Chu and colleagues, with an educational allan from [employer]. Review of Systems Const Details: Denies chills, Denies fatigue, Denies fever(s), Denies headache(s) and Denies weakness Cardiac Denies chest pain, Denies claudication, Denies leg edema, Denies lightheadedness, Denies palpitations, Denies dyspnea, Denies dyspnea on exertion, Denies orthopnea and Denies other (Loss of consciousness) Resp Denies cough, Denies excessive phlegm production, Denies dyspnea, Denies dyspnea on exertion, Denies snoring and Denies wheezing Physical exam (Primary Care) Tobacco/Smoking Status: Tobacco use Status Tobacco use date assessed 06/13/24 06/13/24 14:09 Patient Tobacco Use Status Never used Tobacco 06/13/24 14:09 Tobacco use type 06/08/24 14:40 e-Cigarette/Vaping Use Former Use 06/13/24 14:09 Thrive Assessment: Date of Thrive Assessment Date Thrive assessed 09/14/23 06/13/24 14:09 Const Other: Patient is alert and oriented x3. Telehealth Telehealth Telehealth Platform: Telephone Location of provider rendering services: practice address Location of patient: address on file Patient Identification confirmed using: Name, : Yes Telehealth method: voice only Patient verbally consented to treatment: Yes Patient verbally consented to billing insurance company: Yes Patient informed of any privacy concerns related to visit: Yes Coding Level of Care Code Tele Est Pt Level 3 (67932) Diagnoses Vitamin D deficiency E55.9 Time Spent (min) 15 Assessment & Plan Assessment & Plan (1) Vitamin D deficiency: Code(s): E55.9 - Vitamin D deficiency, unspecified Category: Medical Plan: Recent vitamin-D level is slightly low, 25.8, previous level was 24.9. Continue current treatment regimen. Encouraged to take vitamin D3 as prescribed. Repeat vitamin-D blood work 2-3 days before next visit. Follow-up for telehealth visit in 6 weeks. Return sooner with symptoms or concerns. Verbalized understanding and agreed with treatment plan. Orders: Orders Vitamin D 25-OH Total 6 Weeks E55.9 - Vitamin D deficiency, unspecified
--- OUTSIDE RECORDS SUMMARY | 2024-06-13 16:32 | XMS_ITS | Clinical Summary ---
Author Organization [facility] [place] Address [address] [place] [address] Care Team Providers Care Grainer Machine Name Role Phone Unavailable Primary Care Provider Unavailabl e Allergies No known active allergies Medications No known medications Encounters Date Type Department Care Team Description 04/25/2024 Telephone Bariatric Surgery - [address] [address] Shi Vasquez MD 04/05/2024 11:30 AM EST Telemedicine Bariatric Surgery - [address] [address] Class 3 severe obesity without serious comorbidity with body mass index (BMI) of 45.0 to 49.9 in adult, unspecified obesity type (CMS/HCC V24, CMS/HCC V28) (Primary Dx) 03/30/2024 Telephone Bariatric Surgery - [address] [address] Shi Vasquez MD 03/29/2024 3:30 PM EST Office Visit Bariatric Surgery [address] [address] Shi Vasquez MD Class 3 severe obesity [...] Upcoming Encounters Date Type Department Care Team ([facility] st Contact Info) Description 08/01/2024 10:15 AM EDT Office Visit Bariatric Surgery - [place] 175 [facility] [address] [place] [phone] Shi Vasquez MD [address] [address] Health Maintenance Due Date Last Done Comments [...] (BMI) of 40.0 to 44.9 in adult ([facility] V24, [facility] V28) HEPATIC FUNCTION PANEL Routine 03/30/2024 10:42 AM EST Class 3 severe obesity due to excess calories without serious comorbidity with body mass index (BMI) of 40.0 to 44.9 in adult ([facility] V24, [facility] V28) LIPID PANEL WITH REFLEX TO DIRECT LDL Routine 03/30/2024 10:42 AM EST Class 3 severe obesity due to excess calories without serious comorbidity with body mass index (BMI) of 40.0 to 44.9 in adult ([facility] V24, [facility] V28) HEMOGLOBIN A1C Routine 03/30/2024 10:42 AM EST Class 3 severe obesity due to excess calories without serious comorbidity with body mass index (BMI) of 40.0 to 44.9 in adult ([facility] V24, [facility] V28) from Last 3 Months Results * Lipid panel with reflex to direct LDL (03/30/2024 10:42 AM EST) Cholesterol 167 0 - 200 mg/dL LAB CHEMISTRY METHOD 03/30/2024 3:28 PM EST [facility] Triglycerides 114 0 - 150 mg/dL LAB CHEMISTRY METHOD 03/30/2024 3:28 PM EST [facility] HDL 46 >=40 mg/dL LAB CHEMISTRY METHOD 03/30/2024 3:28 PM [facility] LDL Calculated 98 0 - 100 mg/dL LAB CHEMISTRY METHOD 03/30/2024 3:28 PM EST [facility] VLDL Cholesterol Prabhakar 22.8 mg/dL LAB CHEMISTRY METHOD 03/30/2024 3:28 PM [facility] Non HDL Chol. (LDL+VLDL) 121 <145 mg/dL LAB CHEMISTRY METHOD 03/30/2024 3:28 PM [facility] Chol/HDL Ratio 3.6 0.0 - 4.4 LAB CHEMISTRY METHOD 03/30/2024 3:28 PM [facility] Blood Venous blood specimen / Unknown Venipuncture / Unknown 03/30/2024 10:42 AM EST 03/30/2024 10:42 AM EST us Shi Vasquez MD LAB BLOOD ORDERABLES Final R esult Performing Organization Address City/[facility]/ZIP Co de Phone Number [facility] [address] [place] [address], [place] [phone] * Thyroid stimulating hormone (03/30/2024 10:42 AM EST) TSH 1.91 0.40 - 4.00 mcIU/mL LAB CHEMISTRY METHOD 03/30/2024 3:33 PM EST [facility] Blood Venous blood specimen / Unknown Venipuncture / Unknown 03/30/2024 10:42 AM EST 03/30/2024 10:42 AM EST us Shi Vasquez MD LAB BLOOD ORDERABLES Final R esult [facility] [address] [place] [address], [place] [phone] * Hemoglobin A1c (03/30/2024 10:42 AM EST) [facility] Hemoglobin A1C 4.9 <6.5 % LAB CHEMISTRY METHOD 03/30/2024 8:27 PM [facility] Mean Bld Glu Estim. 94 mg/dL LAB CHEMISTRY METHOD 03/30/2024 8:27 PM [facility] Blood Venous blood specimen / Unknown Venipuncture / Unknown 03/30/2024 10:42 AM EST 03/30/2024 10:42 AM EST us Shi Vasquez MD LAB BLOOD ORDERABLES Final R esult [facility] [address] [place] [address], [place] [phone] * Hepatic function panel (03/30/2024 10:42 AM EST) [facility] Total Protein 7.7 6.0 - 8.0 g/dL LAB CHEMISTRY METHOD 03/30/2024 3:28 PM [facility] Albumin 4.0 3.2 - 5.0 g/dL LAB CHEMISTRY METHOD 03/30/2024 3:28 PM [facility] Total Bilirubin 0.5 0.0 - 1.4 mg/dL LAB CHEMISTRY METHOD 03/30/2024 3:28 PM [facility] Bilirubin, Direct <0.1 0.0 - 0.3 mg/dL LAB CHEMISTRY METHOD 03/30/2024 3:28 PM [facility] Bilirubin, Indirect LAB CHEMISTRY METHOD 03/30/2024 3:28 PM [facility] Comment:Unable to calculate Indirect Bilirubin. ALT (SGPT) 30 10 - 60 unit/L LAB CHEMISTRY METHOD 03/30/2024 3:28 PM EST [facility] AST (SGOT) 18 10 - 42 unit/L LAB CHEMISTRY METHOD 03/30/2024 3:28 PM EST [facility] Alkaline Phosphatase 59 42 - 121 unit/L LAB CHEMISTRY METHOD 03/30/2024 3:28 PM EST [facility] Blood Venous blood specimen / Unknown Venipuncture / Unknown 03/30/2024 10:42 AM EST 03/30/2024 10:42 AM EST us Shi Vasquez MD LAB BLOOD ORDERABLES Final R esult [facility] [address] [place] [address], [place] [phone] from Last 3 Months Insurance [facility]
== END 2024-06-13 16:42 | disposition home or self-care (01) ==
LOC: HO.HMCFM 14:12
PROVIDERS: PCP Nurse Practitioner Family; Visit Provider Nurse Practitioner Family
DX: E55.9 Vitamin D deficiency, unspecified (principal)

== ENCOUNTER 2024-07-29 08:56 | Outpatient (REF) | payer OTHER, SELFPAY ==
--- OUTSIDE RECORDS SUMMARY | 2024-07-29 09:00 | XMS_ITS | Clinical Summary ---
Author Organization [facility] [place] Address [address] [place] [address] Care Team Providers Care Vending Machine Filler Name Role Phone Unavailable Primary Care Provider Unavailabl e Allergies No known active allergies Medications No known medications Social History Tobacco Use Types Packs/Day Years [...] Care Team (Late st Contact Info) Description 08/01/2024 10:15 AM EDT Office Visit Bariatric Surgery - [place] 175 [facility] [address] [place] [phone] Shi Vasquez MD 175 [facility] [address] [place] [address] Health Maintenance Due Date Last Done Comments [...] Procedure Name Priority Date/Time Associated Diagnosis Comments LIPID PANEL WITH REFLEX TO DIRECT LDL Routine 03/30/2024 10:42 AM EST Class 3 severe obesity due to excess calories without serious comorbidity with body mass index (BMI) of 40.0 to 44.9 in adult (CMS/HCC V24, CMS/HCC V28) from Last 3 Months or Most Recently Relevant to Health Maintenance Results * Lipid panel with reflex to direct LDL (03/30/2024 10:42 AM EST) Cholesterol 167 0 - 200 mg/dL LAB CHEMISTRY METHOD 03/30/2024 3:28 PM EST [facility] Triglycerides 114 0 - 150 mg/dL LAB CHEMISTRY METHOD 03/30/2024 3:28 PM [facility] HDL 46 >=40 mg/dL LAB CHEMISTRY METHOD 03/30/2024 3:28 PM [facility] LDL Calculated 98 0 - 100 mg/dL LAB CHEMISTRY METHOD 03/30/2024 3:28 PM EST [facility] VLDL Cholesterol Prabhakar 22.8 mg/dL LAB CHEMISTRY METHOD 03/30/2024 3:28 PM [facility] Non HDL Chol. (LDL+VLDL) 121 <145 mg/dL LAB CHEMISTRY METHOD 03/30/2024 3:28 PM [facility] Chol/HDL Ratio 3.6 0.0 - 4.4 LAB CHEMISTRY METHOD 03/30/2024 3:28 PM EST [facility] Blood Venous blood specimen / Unknown Venipuncture / Unknown 03/30/2024 10:42 AM EST 03/30/2024 10:42 AM EST us Shi Vasquez MD LAB BLOOD ORDERABLES Final R esult [facility] [address] [place] [address], from Last 3 Months or Most Recently Relevant to Health Maintenance Insurance [facility] [facility]
[2024-07-29 11:04] LABS: Vitamin D 25-OH Total 25.4 ng/mL (>30)
== END 2024-07-29 08:57 | disposition home or self-care (01) ==
LOC: HO.LAB 08:56
PROVIDERS: PCP Nurse Practitioner Family; Visit Provider Nurse Practitioner Family
DX: E55.9 Vitamin D deficiency, unspecified (principal)
CPT/HCPCS: 36415; 82306

== ENCOUNTER 2024-07-29 14:35 | Outpatient (AMB) | payer OTHER, SELFPAY ==
--- NOTE | 2024-07-29 14:30 | MHC.PC.OV ---
Intake Visit Reasons: Telehealth 6 wks vitamin-D deficiency Intake Note: patient here for 6 wks vitamin-D deficiency telehealth follow up Wind Farm Support Specialist Required: Yes Wind Farm Support Specialist Language: Nepali Information Interpreted: non-clinical & clinical Allergies No Known Allergies Allergy (Verified 07/29/24 14:31) Tobacco use date assessed: 07/29/24 Dental Screening Dental Screen Date: 07/29/24 Did you have a dental visit in the last 12 months?: No Did you have a dental problem in the last 6 months where you did not have access to dental care?: No Was dental information given to patient?: Patient has dentist HPI HPI Comments History of Present Illness Details 38-year-old male presents for a telehealth visit for review of recent lab results. He notes that sometimes he takes vitamin D3 every other day instead of daily. No acute symptoms at this time. Interpretation by the patient's partner per patient's preference. PFS Medical History Recent foreign travel Surgical History No pertinent past surgical history Family History Mother Heart problem Daughter No problems noted. Daughter No problems noted. Son No problems noted. Son No problems noted. 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 Tereso Babin, Ginna Wren, Tyshawn Chu and colleagues, with an educational allan from [employer]. Review of Systems Const Details: Denies chills, Denies fatigue, Denies fever(s), Denies headache(s) and Denies weakness Cardiac Denies chest pain, Denies claudication, Denies leg edema, Denies lightheadedness, Denies palpitations, Denies dyspnea, Denies dyspnea on exertion, Denies orthopnea and Denies other (Loss of consciousness) Resp Denies cough, Denies excessive phlegm production, Denies dyspnea, Denies dyspnea on exertion, Denies snoring and Denies wheezing Physical exam (Primary Care) Tobacco/Smoking Status: Tobacco use Status Tobacco use date assessed 07/29/24 07/29/24 14:32 Patient Tobacco Use Status Never used Tobacco 07/29/24 14:32 Tobacco use type 06/08/24 14:40 e-Cigarette/Vaping Use Former Use 07/29/24 14:32 Thrive Assessment: Date of Thrive Assessment Date Thrive assessed 09/14/23 07/29/24 14:32 Const Other: Patient is alert and oriented x3 Telehealth Telehealth Telehealth Platform: Telephone Location of provider rendering services: practice address Location of patient: address on file Patient Identification confirmed using: Name, : Yes Telehealth method: voice only Patient verbally consented to treatment: Yes Patient verbally consented to billing insurance company: Yes Patient informed of any privacy concerns related to visit: Yes Coding Level of Care Code Tele Est Pt Level 3 (11582) Diagnoses Vitamin D deficiency E55.9 Time Spent (min) 10 Assessment & Plan Assessment & Plan (1) Vitamin D deficiency: Code(s): E55.9 - Vitamin D deficiency, unspecified Category: Medical Plan: Recent vitamin D level is slightly low, 25.4. Previous level was 25.8. Advised to take vitamin D3 25 mcg daily. Informed that the sun is a good source of vitamin-D. Perform fasting lipid panel blood and also vitamin-D blood work before next visit. Follow-up for a physical exam and labs review in 2 months. Return sooner with symptoms or concerns. Verbalized understanding and agreed with the plan. Orders: Orders Lipid Panel 2 Months Z00.00 - Encounter for general adult medical examination without abnormal findings Vitamin D 25-OH Total 2 Months E55.9 - Vitamin D deficiency, unspecified Medications: Changed From cholecalciferol (vitamin D3) 25 mcg PO DAILY 30 days 30 tabs 2RF To cholecalciferol (vitamin D3) 25 mcg PO DAILY 90 days 90 tabs 1RF
== END 2024-07-29 15:22 | disposition home or self-care (01) ==
LOC: HO.HMCFM 14:35
PROVIDERS: PCP Nurse Practitioner Family; Visit Provider Nurse Practitioner Family
DX: E55.9 Vitamin D deficiency, unspecified (principal)

== ENCOUNTER 2024-08-02 12:41 | Outpatient (AMB) | payer OTHER, SELFPAY ==
--- NOTE | 2024-08-02 13:04 | A.OFFVIS_ITS ---
Intake Visit Reasons: Frenulectomy Intake Note: Patient is present for Frenulectomy Urology Medication:NONE Antibiotic Allergy:NONE Blood Thinner:NONE Salvage Cutter Required: No Allergies No Known Allergies Allergy (Verified 08/02/24 13:05) HPI Comments Details: Dwight is a very pleasant [place]-speaking male. He is a patient of Dr. Swann. He is seen for the following urologic conditions - frenular tethering Here for frenulectomy Patient with tight frenulum and frenula tethering Accompanied by girlfriend who was translating CPT - 96465 Indication: Frenulum breve causing painful erections and/or tearing Consent: Informed consent obtained. Procedure, risks, benefits, and alternatives discussed with the patient in detail. All questions answered. Procedure: The patient was placed in the supine position. The penis was prepped and draped in sterile fashion. A penile block was performed using 1% lidocaine with epinephrine. After adequate anesthesia was achieved, the frenulum was inspected and noted to be tight and restrictive. A horizontal incision was made through the frenulum at its most constricted portion using a Bovie battery cautery after tissue clamping. The underlying fibrous band was divided completely, releasing the tethering of the glans penis. Minor bleeding was encountered and controlled with direct pressure and electrocautery as needed. Hemostasis was confirmed. The incision was closed with interrupted 3-0 chromic gut sutures, ensuring minimal tension and good alignment of the mucosal edges. Estimated Blood Loss: Minimal Complications: None Disposition: Patient tolerated the procedure well and was discharged in stable condition. Postoperative Instructions: * Keep the area clean and dry * Apply aquafore ointment twice daily * Avoid sexual activity or masturbation for 3?4 weeks * Follow-up in clinic [facility] Medical History Recent foreign travel Surgical History No pertinent past surgical history Family History Mother Heart problem Daughter No problems noted. Daughter No problems noted. Son No problems noted. Son No problems noted. 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 Current occupational exposures/hazards: No Cognitive needs: No Hearing needs: No Vision needs: No Review of Systems Const Denies chills and Denies fever(s) Card Reports no additional complaints and Denies syncope Resp Denies cough GI Denies abdominal pain and Denies heartburn Reports as per HPI and Denies change in libido Neuro Denies syncope Psych Denies change in libido Endo Denies change in libido Physical Exam Const General: cooperative, healthy appearing, comfortable and no acute distress Orientation/consciousness: patient oriented x3 HEENT Face and sinus: Yes normal facial exam Mouth: moist mucous membranes Neck Neck: Yes normal visual inspection, Yes full ROM and Yes trachea midline Chest Chest palpation & inspection: normal inspection of the chest Resp Effort & Inspection: normal respiratory effort, able to speak in complete sentences and no respiratory distress GI Inspection: Yes normal to inspection Back/Spine/Pelvis Cervical Spine: normal cervical lordosis Thoracic/Lumbar Spine: thoracic and lumbar spine normal to inspection Skin General skin exam: no rashes or lesions noted Neuro General: patient oriented x3, gait normal, tone normal and moves all extremities Extrem General: Yes normal to inspection and Yes capillary refill normal Assessment & Plan Assessment & Plan (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 While every effort has been made to ensure accuracy oil process stillman errors may have been included. Imaging studies, laboratory and physical exam results were discussed and reviewed in detail. No major barriers to patient understanding were identified. An opportunity to ask questions regarding the treatment plan was provided. All questions were answered. The patient expressed understanding and agreement with the above treatment plan. The patient is aware they should contact our office by phone for worsening of their current condition or the appearance of new urologic symptoms. Compliance is encouraged with any medications and followup testing that is ordered. It is a privilege to participate in the urologic care of your patient. If you have any questions or concerns regarding treatment for the above conditions, or other urologic issues, please do not hesitate to contact me. The office telephone contact is [phone]. Sincerely, Dr Joey Roman MD, [facility] - Urology Compassionate Specialist Care for the Genitourinary System Coding Level of Care Code Procedure Only Diagnoses Short frenulum of penis Q55.69
== END 2024-08-02 14:00 | disposition home or self-care (01) ==
LOC: HO.HUSH 12:41
PROVIDERS: PCP Nurse Practitioner Family; Visit Provider Urology
DX: Q55.69 Other congenital malformation of penis (principal)
CPT/HCPCS: 54164

== ENCOUNTER → 2024-08-02 12:41 | Outpatient (BNVA) | payer OTHER, SELFPAY | PROVIDERS: PCP Nurse Practitioner Family; Visit Provider Urology ==